=== PATIENT | female | born 1950 | race Caucasian/White ===

== ENCOUNTER → 2018-02-07 | Outpatient (CLI) | payer MEDICARE, OTHER | LOC: M.RAD 09:47 | DX: K50.90 Crohn's disease, unspecified, without complications (principal); K63.89 Other specified diseases of intestine ==

== ENCOUNTER → 2019-09-23 | Day surgery (SDC) | payer MEDICARE, OTHER ==
[~2019-09-23] MED LIST: ALIGN4 MG PO; ALLERGY RELIEF180 MG PO; BENICAR20 MG PO; CALCIUM WITH V1 EAC1 PO; CELEBREX 200 M200 M1 PO; COLESTID1 GM PO; GAVISCON TABLE1 EACH PO; KLOR-CON 1010 MEQ PO; LOPERAMIDE 2 MG2 M1 PO; MULTIVITAMIN W1 EAC2 PO; OMEPRAZOLE40 MG PO; PEPCID40 MG PO; PLAQUENIL200 MG PO; STELARA90 MG/1 ML SUBQ; VITAMIN B122500 MCG PO
--- NOTE | ~2019-09-23 | PROC ---
[address] [address] PROCEDURE REPORT Name: MIRIAM ACOSTA Room: [facility]#: [id number] Admission: 09/23/19 Attend Phys: Tr Weeks DO Discharge: Date of : 46 Report #: [id number] THIS REPORT FOR: //name// cc: SHRUTHI MONTES Physician not on staff ~ THIS REPORT FOR: //name// For GI report, please see the Provation report in Perceptive 7 content. By: 1038Medical Records Staff SIOBHAN /ABIDA
[2019-09-23 09:24] LABS: HEMATOCRIT 37.9 % (37.0-47.0); HEMOGLOBIN 12.9 gm/dL (12.0-15.0); MCH 30.3 pg (26.0-34.0); MCHC 33.9 g/dL (28.0-37.0); MCV 89.4 fL (80.0-100.0); RBC 4.24 mil/uL (4.20-5.00); WBC 7.6 thou/uL (4.0-11.0)
[2019-09-23 09:25] LABS: CALCIUM 9.4 mg/dL (8.5-10.1); POTASSIUM 3.5 mmol/L (3.5-5.1)
--- NOTE | 2019-09-23 09:43 | EKG ---
[place] [address] ELECTROCARDIOGRAM REPORT Name: MIRIAM ACOSTA Room: [facility]#: [id number] Admission: 09/23/19 Attend Phys: Tr Weeks, Discharge: Date of : 46 Date of Service: 09/23/1904 Report #: [id number] THIS REPORT FOR: //name// [facility] Test Date: 2019-09-23 Test Time: 09:04:09 Pat Name: MIRIAM ACOSTA Department: Room: Gender: Legal Technician: : 1950 Requested By: Tr Weeks Order Number: [id number] Harmony MD: Marshall Bell Measurements Intervals [place] Rate: 69 P: 32 CO: 139 QRS: -26 QRSD: 102 T: 44 QT: 413 QTc: 443 Interpretive Statements Sinus rhythm Incomplete RBBB and LAFB RSR' in V1 or V2, right VCD or RVH No previous ECG available for comparison Electronically Signed On 09-23-2019 9:41:47 CDT by Marshall Bell [email or web address] <ELECTRONICALLY SIGNED> By: Marshlal Bell MD, FACC 09/23/19 0941 0904 Marshall Bell MD, [facility] /EPI
--- NOTE | 2019-09-24 14:07 | PATH ---
[address] [address] PATHOLOGY RPT PROCEDURE Name: KRISTA ACOSTA Room: [facility]#: [id number] Admission: 09/23/19 Date of : 46 Discharge: Report #: [id number] Path Case #: [id number] [facility] Accession Number: [id number] . 01 Material submitted: . PART A: colon - BIOPSY OF ULCERATED TUMOR MID TRANSVERSE COLON. Modifiers: mid, transverse PART B: ileum - BIOPSY OF DISTAL ARLEN-TERMINAL ILEUM. Modifiers: distal . 01 Clinical history: . Crohn's and history of SBC . 02 Diagnosis: A. 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 (SEE COMMENT) . B. Biopsy distal arlen-terminal ileum: - Moderate active ileitis with suggestion of chronic inflammation and hyperplastic lymphoid follicles (Peyer's patches), negative for granulomas, viral inclusions and dysplasia. (SEE COMMENT) . (PALMER:mmemmie; 09/24/2019) QL 09/24/2019 1327 Local . 02 Comment: The distal arlen-terminal ileum biopsy (B) shows moderate active inflammation with easily identified neutrophils in the lamina propria, although with no crypt abscesses and, at most, minimal cryptitis and there is a suggestion of chronic inflammation where there is some crypt disarray and basal lymphoplasmacytosis, although it is difficult to ascertain in this fragment where there is also a hyperplastic lymphoid follicle. These findings could be seen in mildly active Crohn's disease. . Specimen A is reviewed with Dr. Tenzin Rodriguez who agrees with the diagnosis. . Discussed with Dr. Weeks at approximately 1310 on 09/24/2019. . (PALMER:mmemmie; 09/24/2019) . 02 Electronically signed: . Jamaal Bacon MD, Pathologist NPI- [id number] . 01 Gross description: . A. The specimen is received in formalin, labeled "Krista Acosta, [place] [address] PATHOLOGY RPT PROCEDURE Name: KRISTA ACOSTA Room: [facility]#: [id number] Admission: 09/23/19 Date of : 46 Discharge: Report #: [id number] Path Case #: [id number] ulcerated tumor mid transverse colon" and consists of multiple fragments of pink-fortune tissue measuring 1.0 x 0.6 x 0.3 cm in aggregate which are entirely submitted in A1. . B. The specimen is received in formalin, labeled "Krista Acosta, BX distal neoterminal ileum" and consists of multiple fragments of pink-fortune tissue measuring 0.9 x 0.8 x 0.2 cm in aggregate which are entirely submitted in B1. (SDY; 09/23/2019) SYU/SYU 09/23/2019 1628 Local . 02 Pathologist provided ICD-10: C18.4, K52.9 . 02 CPT . 586976, [id number] Specimen Comment: A courtesy copy of this report has been sent to [phone] Specimen Comment: [phone], Specimen Comment: Report sent to ,DR MONTES / DR MARTIN Performed at: [address], [place], [place] [id number] MD Martinez Weir MD Phone: [phone] Performed at: 02 [facility] [address], [place], [place] [id number] MD Jamaal Bacon MD Phone: [phone]
== END | disposition home or self-care (01) ==
LOC: M.SUR 06:35
PROVIDERS: Internal Medicine Gastroenterology
DX: R93.3 Abnormal findings on diagnostic imaging of other parts of digestive tract (principal); C18.4 Malignant neoplasm of transverse colon; K52.9 Noninfective gastroenteritis and colitis, unspecified; K63.89 Other specified diseases of intestine; Z87.19 Personal history of other diseases of the digestive system; Z98.0 Intestinal bypass and anastomosis status; Z85.038 Personal history of other malignant neoplasm of large intestine; I10 Essential (primary) hypertension; M19.90 Unspecified osteoarthritis, unspecified site; K21.9 Gastro-esophageal reflux disease without esophagitis; Z90.49 Acquired absence of other specified parts of digestive tract; Z87.891 Personal history of nicotine dependence; Z79.899 Other long term (current) drug therapy

== ENCOUNTER 2019-10-07 06:23 | Inpatient (IN) | payer MEDICARE, OTHER ==
[~2019-10-07] VITALS: Ht 152.4 cm; Wt 64.7 kg
--- NOTE | ~2019-10-07 | H ---
[address] [address] HISTORY AND PHYSICAL Name: MIRIAM ACOSTA Room: [address] IN M.R.#: [id number] Admission: 10/07/19 Attend Phys: Radha Hensley DO Discharge: 10/16/19 Date of : 46 Report #: [id number] THIS REPORT FOR: //name// cc: ACOSTA - Family physician unknown FAM - Family physician unknown ~ THIS REPORT FOR: //name// Please refer to the History and Physical performed in the physician's office. By: [id number] Records Staff [facility] /ABIDA
[2019-10-07 07:30] VITALS: BP 135/69
[2019-10-07 15:25] VITALS: BP 125/59
--- NOTE | 2019-10-07 16:28 | NUR ---
PT ARRIVED TO FLOOR FROM PACU ABOUT 1415. PT STABLE. ON 3LO2 WITH PULSE OX. IYER PATENT. LAP SITES ARE C/D/I. MINIMAL PAIN, DENIED PAIN MEDS. DENIED NAUSEA AT TIME. A&Ox4. VITALS STABLE. IV PATENT, INFUSING. BED ALARM ON. CLEAR LIQUID DIET. CALL LIGHT WITHIN REACH. WILL CONTINUE TO MONITOR.
[2019-10-07 17:21] VITALS: BP 128/64
[2019-10-07 20:00] VITALS: BP 115/55
[2019-10-08] VITALS: BP 113/49
[2019-10-08 04:00] VITALS: BP 101/50
[2019-10-08 05:41] LABS: HEMOGLOBIN 10.3 gm/dL (12.0-15.0); MCH 31.4 pg (26.0-34.0); MCHC 34.3 g/dL (28.0-37.0); MCV 91.5 fL (80.0-100.0); MPV 9.2 fl. (7.2-11.1); NUCLEATED RBCS 0 /100WBC; PLATELET COUNT* 167 thou/uL (150-400); RBC 3.28 mil/uL (4.20-5.00); RDW-CV 13.8 % (10.5-14.5); WBC 9.7 thou/uL (4.0-11.0)
[2019-10-08 05:54] LABS: CALCIUM 7.7 mg/dL (8.5-10.1); CREATININE 1.1 mg/dL (0.6-1.3)
[2019-10-08 06:36] LABS: ABSOLUTE LYMPHOCYTES 0.7 thou/uL (0.8-5.3); ABSOLUTE MONOCYTES 0.2 thou/uL (0.0-1.2); ABSOLUTE NEUTROPHILS 8.8 thou/uL (1.6-8.1); PLATELET ESTIMATE ADEQUATE
--- NOTE | 2019-10-08 07:15 | NUR ---
CHANGE OF SHIFT, BEDSIDE REPORT GIVEN PATIENT SEEN AT BEDSIDE, IN BED ASLEEP ASSUMED PATIENT CARE
--- NOTE | 2019-10-08 07:49 | NUR ---
ASSUMED CARE OF PT AFTER REPORT AT 1930. PT A&OX4. VSS. PHYSICAL ASSESSMENT COMPLETED AND CHARTED. PT ON O2 AT 2L NC. PT ON MEDSURG STATUS. PT UP WITH 1 ASSIST. PT COMPLAINED OF ABDOMINAL PAIN-MED GIVEN PER AUG. PT ABLE TO SLEEP WELL ON BED. CALL LIGHT WITHIN REACH.
[2019-10-08 08:00] VITALS: BP 146/79; BP 167/57
--- NOTE | 2019-10-08 12:05 | NUR ---
CM spoke with Pt's via phone. Pt resides at home with her in [place], Pt's Drs are in this area. Pt is independent and active. No hx of HH. Hx of being at a swing bed in [place] post surgery, Pt had cdiff at that time and needed IVABX. Pt sees Dr Muller at [facility] in [place], [place] [phone]. [place] [address] down and pick out hand Pt at [place]. Following.
[2019-10-08 16:00] VITALS: BP 115/60
[2019-10-08 20:00] VITALS: BP 102/44
[2019-10-09] VITALS: BP 119/49
--- NOTE | 2019-10-09 04:09 | NUR ---
ASSUMED CARE OF PT AFTER REPORT AT 1930. PT A&OX4. VSS. PHYSICAL ASSESSMENT COMPLETED AND CHARTED. PT ON O2 AT 1LNC. PT ON MEDSURG STATUS. PT UPSTANDBY TO RESTROOM. PT COMPLAINED OF ABDOMINAL PAIN-MED GIVEN PER AUG. PT ABLE TO SLEEP WELL ON BED. FALL PRECAUTIONS IN PLACE. CALL LIGHT WITHIN REACH.
[2019-10-09 04:21] LABS: HEMATOCRIT 28.2 % (37.0-47.0); HEMOGLOBIN 9.6 gm/dL (12.0-15.0); MCHC 34.1 g/dL (28.0-37.0); MCV 90.8 fL (80.0-100.0); RBC 3.11 mil/uL (4.20-5.00); RDW-CV 13.9 % (10.5-14.5); WBC 8.2 thou/uL (4.0-11.0)
[2019-10-09 05:14] LABS: CALCIUM 8.2 mg/dL (8.5-10.1); CREATININE 0.9 mg/dL (0.6-1.3); POTASSIUM 3.6 mmol/L (3.5-5.1)
--- NOTE | 2019-10-09 07:10 | NUR ---
CHANGE OF SHIFT, BEDSIDE REPORT GIVEN PATIENT SEEN AT BEDSIDE, IN BED RESTING ASSUMED PATIENT CARE
[2019-10-09 07:30] VITALS: BP 115/46
[2019-10-09 16:00] VITALS: BP 124/63
[2019-10-09 19:30] VITALS: BP 124/51; BP 140/62
[2019-10-10 00:05] VITALS: BP 129/60
--- NOTE | 2019-10-10 02:45 | NUR ---
ASSUMED CARE FROM DAY SHIFT , PT UP AMBULATING IN HALLWAY TOLERATING WELL , PT HAD LOOSE STOOL , ABD DISTENDED BOWEL SOUNDS NOTED. PAIN GIVEN ONE TIME THIS SHIFT , PT RESTING QUIETLY THROUGHOUT HOURLY ROUNDS, WILL REPORT CHANGES OR ABNORMAL FINDINGS.
[2019-10-10 04:41] LABS: HEMATOCRIT 31.9 % (37.0-47.0); HEMOGLOBIN 10.8 gm/dL (12.0-15.0); MCV 91.2 fL (80.0-100.0); MPV 9.1 fl. (7.2-11.1); RBC 3.49 mil/uL (4.20-5.00); RDW-CV 13.5 % (10.5-14.5); WBC 3.2 thou/uL (4.0-11.0)
[2019-10-10 04:59] LABS: CALCIUM 8.6 mg/dL (8.5-10.1); POTASSIUM 3.5 mmol/L (3.5-5.1)
--- NOTE | 2019-10-10 06:31 | NUR ---
PT VOMITED APPROX 700ML OF BROWN STOOL SMELLING EMESIS, PT STATES SHE FIRST VOMITED 0200 500ML THEN 200ML AT 0600 . CALLED PLACED TO DR Db CHAVEZ. RESDIDENT RETURNED CALL AND STATED HE WILL PT EARLY THIS AM.
[2019-10-10 07:45] VITALS: BP 134/72
[2019-10-10 11:54] VITALS: BP 136/63
--- NOTE | 2019-10-10 14:57 | OP ---
[address] [address] OPERATIVE REPORT Name: MIRIAM ACOSTA Evan Room: [address] IN .R.#: [id number] Admission: 10/07/19 Attend Phys: Radha Hensley DO Discharge: Date of : 46 Report #: [id number] THIS REPORT FOR: //name// cc: FAM - Family physician unknown FAM - Family physician unknown ~ THIS REPORT FOR: //name// CC: Radha MONTES FAM unknown Tr Weeks DO DICTATED BY: Robert Andrade DO DATE OF SERVICE: 10/07/2019 PREOPERATIVE DIAGNOSIS: Transverse colon mass. POSTOPERATIVE DIAGNOSES: Transverse colon mass. SURGEON: Radha Hensley DO RELATIONSHIP SPECIALIST: Robert Andrade, PGY4 and Anayeli Palmer, PGY-2. OPERATION PERFORMED: Laparoscopic extended right hemicolectomy and [id number] stapled ileocolonic anastomosis with lysis of adhesions greater than 2 hours. ANESTHESIA: General, local and transversus abdominis plane block. ESTIMATED BLOOD LOSS: 30 mL. SPECIMEN: Extended right hemicolectomy. COMPLICATIONS: None. INDICATIONS: The patient is a 69-year-old female well known to our service who had a history of ileocecectomy for Crohn's strictures with incidental finding of adenocarcinoma with Clostridium difficile in her postoperative. She also since has had acute cholecystitis, status post cholecystectomy and a pelvic abscess that was treated with IR drain. She also developed a ventral hernia, which was repaired with mesh. During her surveillance with Oncology, she underwent a PET scan that showed a possible abdominal lesion. She underwent colonoscopy, which showed a single transverse colon mass. There was an additional mass that was not visualized on the colonoscopy, but was present [place] [address] OPERATIVE REPORT Name: MIRIAM ACOSTA Room: [address]#: [id number] Admission: 10/07/19 Attend Phys: Radha Hensley DO Discharge: Date of : 46 Report #: [id number] suspicious for rosio metastasis. Due to the finding of a lesion within the transverse colon, she was informed of the risks and benefits of laparoscopic right hemicolectomy with high possibility for needing an open procedure. She understood the risks, she decided to proceed with surgery. DESCRIPTION OF PROCEDURE: After informed consent was obtained, the patient was brought to the operating room and placed in the supine position. SCDs were on and running. Preoperative antibiotics were delivered. General anesthesia was administered with an ET tube. White catheter was placed. The patient was prepped and draped in the usual sterile fashion. A surgical pause was held to confirm proper patient and procedure. The inferior aspect of her previous midline incision from her ileocecectomy, a 2 cm vertical incision was made. Dissection was carried through the subcutaneous tissue using cautery until the fascia was identified, which was elevated with 2 Kochers and incised using cautery. Peritoneum was bluntly entered using Chen, 0 Vicryl was placed on either side of the fascia. Rubén trocar was inserted. The abdomen was insufflated. Camera was introduced into the abdomen. There were some omental adhesions to her midline incision and from her hernia repair, which was intact. The transverse colon was visualized and the majority of the transverse colon was adherent to the abdominal wall, both tattoos were readily visualized. Two 5 mm ports on the left side, one in the left upper quadrant, one in the left lower quadrant were placed under direct visualization. Lysis of adhesions to the omental abdominal wall adhesions was undertaken. These were dense and quite extensive. Once these were taken down, there were some small bowel adhesions in the right upper quadrant, which were taken down using laparoscopic scissors. There were multiple adhesions over the dome of the liver. A few of the anterior adhesions that were tenting the liver were taken down. The previous anastomosis was adhesed to the abdominal wall on the right lower quadrant. These adhesions were taken down using scissors with care to maintain the integrity of the bowel. Once the lateral aspect of the anastomosis and the remaining right colon were taken down, the extent of resection was assessed. The distal margin was selected, which was at least 5 cm distal to her distal tattoo. A window was made through the mesentery. A 60 mm purple load Endo-MATEO by [employer] was fired across the transverse colon. The gastrocolic ligament was developed using a LigaSure and this was developed along the entire length of the transverse colon. Once this was completely free and only the mesentery was tethering the colon, the small bowel that was proximal to the previous anastomosis was selected. A loop of bowel that would easily reach the abdominal wall for the new anastomosis was selected and transected using a [employer] Endo-MATEO 45 mm stapler. The LigaSure was then used to take down the mesentery of the small bowel; the previous anastomosis in the right and transverse colon. Once the transverse right colon and transected small bowel mesenteries were completely taken down, the specimen was free. Laparoscopic Babcocks were then used to grasp the two ends for the anastomosis. A site was selected for specimen extraction and extracorporeal anastomosis in the epigastrium. An incision was made approximately 3 cm long. Dissection was carried through subcutaneous tissue [facility] [address] [place] [address] OPERATIVE REPORT Name: MIRIAM ACOSTA Room: [address] [place] M.R.#: [id number] Admission: 10/07/19 Attend Phys: Radha Hensley DO Discharge: Date of : 46 Report #: [id number] bluntly until the fascia was identified, which was again elevated with 2 Kochers and incised using cautery. Peritoneum was bluntly entered with a finger. Once the fascia was extended using cautery to the length of the incision, an Todd wound protector was inserted into the abdomen and secured into position. The specimen was grasped and removed, passed off to the back table. The 2 grasped ends of the colon and small bowel were then grasped with Babcocks and exteriorized. Two stay stitches using 2-0 silk were used to approximate the anastomosis. Care was taken to ensure that the bowel was not twisted and that it laid in an anatomical position. The two corners of the previous staple lines were elevated with an Allis. Curved Mayos were used to excise the corners to accommodate a 60 mm Endo-MATEO purple load stapler. This was used to create the common channel. After this was performed, the anterior aspect of the common channel was inspected. It was hemostatic and widely patent. The enterotomy was then closed by approximating the tissue using Allis clamps and firing a TA 60 across the common enterotomy. The anastomosis was widely patent. There was no visible bleeding and there was no twist or kink to the bowel. The anastomosis was returned into the abdomen. The cap was placed on the Todd wound protector. The abdomen was reinsufflated. The abdomen was thoroughly inspected and suctioned. There was no active bleeding. The small bowel and colon laid in a tension-free anastomosis. The trocars were then removed under direct visualization. A right lower quadrant 5 mm trocar had been introduced for assistance with retraction which was also removed under direct visualization and the left upper quadrant trocar had been upsized from a 5 mm to a 12 to accommodate the stapler. This was closed with a PMI using 0 Vicryl. The extraction site in the epigastrium was closed with two running 2-0 PDS. This wound was closed in a layered fashion using 3-0 Vicryl and 4-0 Monocryl. The infraumbilical Rubén was closed using a single [id number] of 2-0 PDS. This was also closed with 3-0 Vicryl and 4-0 Monocryl. The left upper quadrant, left lower quadrant and right lower quadrant skin incisions were closed using 4-0 Monocryl. Wounds were cleansed and dressed with Dermabond. The patient received a transversus abdominis plane block prior to emergence from anesthesia. The patient was extubated, emerged from anesthesia and transferred to the PACU in stable condition. White catheter will stay in place. She will be transferred to the floor for her postoperative care. There were no complications. All counts were correct. <ELECTRONICALLY SIGNED> By: Radha Hensley DO 10/10/19 1457 1248 [id number] Hensley DO /nt
[2019-10-10 16:28] VITALS: BP 130/71
--- NOTE | 2019-10-10 17:30 | NUR ---
PATIENT RESTING IN BED. PATIENT DENIES ANY PAIN AT THIS TIME. PATIENT HAD COMPLAINTS OF PAIN AND NAUSEA WITH VOMITING THIS AFTERNOON, TREATED ADEQUATELY WITH TORADOL AND ZOFRAN. PATIENT HAS POOR APPETITE WITH MINIMAL PO LIQUID INTAKE. IV FLUIDS ARE INFUSING ORDERED. PATIENT IS UP AD LALI TO BATHROOM. PATIENT DENIES ANY NEEDS AT THIS TIME. CALL LIGHT WITHIN REACH.
[2019-10-10 19:30] VITALS: BP 144/62
[2019-10-11] VITALS: BP 160/77
[2019-10-11 04:46] LABS: HEMATOCRIT 32.5 % (37.0-47.0); HEMOGLOBIN 10.9 gm/dL (12.0-15.0); MCH 30.9 pg (26.0-34.0); MCHC 33.6 g/dL (28.0-37.0); MPV 8.6 fl. (7.2-11.1); RBC 3.53 mil/uL (4.20-5.00); RDW-CV 13.6 % (10.5-14.5); WBC 4.3 thou/uL (4.0-11.0)
[2019-10-11 05:12] LABS: CALCIUM 8.6 mg/dL (8.5-10.1); MAGNESIUM 1.9 mg/dL (1.8-2.4); POTASSIUM 3.2 mmol/L (3.5-5.1)
--- NOTE | 2019-10-11 06:16 | NUR ---
PT ALERT AND ORIENTED. VSS ON RA. MEDS GIVEN PER EMAR. 5 LAP SITES TO ABD INTACT. TORADOL GIVEN FOR PAIN. ZOFRAN GIVEN FOR NAUSEA. NO VOMITTING NOTED THIS SHIFT. BM X2 THIS SHIFT PER PT. CALL LIGHT WITHIN REACH. HOURLY ROUNDINGS MADE. WILL CONTINUE TO MONITOR.
[2019-10-11 08:00] VITALS: BP 136/68
--- NOTE | 2019-10-11 10:18 | NUR ---
Spoke with Pt, plan continues to be for Pt [place] or [place] up. Following.
[2019-10-11 12:16] VITALS: BP 137/66
--- NOTE | 2019-10-11 16:31 | NUR ---
PATIENT RESTING IN BED. PATIENT HAS COMPLAINTS OF SOME ABDOMINAL PAIN TREATED ADEQUATELY WITH TORADOL. PATIENT IS TOLERATING SMALL AMOUNT OF CLEAR LIQUIDS. PATIENT HAS HAD NO VOMITING TODAY AND DENIES NEED FOR ZOFRAN. PATIENT HAS HAD BOWEL MOVEMENTS X 2. PATIENT IS UP AD LALI IN ROOM. PATIENT DENIES ANY NEEDS AT THIS TIME. CALL LIGHT WITHIN REACH.
[2019-10-11 19:20] VITALS: BP 141/69
[2019-10-11 23:45] VITALS: BP 148/71
[2019-10-12 05:01] LABS: HEMATOCRIT 35.3 % (37.0-47.0); HEMOGLOBIN 11.7 gm/dL (12.0-15.0); MCH 30.1 pg (26.0-34.0); MCHC 33.2 g/dL (28.0-37.0); MCV 90.6 fL (80.0-100.0); MPV 8.6 fl. (7.2-11.1); NUCLEATED RBCS 0 /100WBC; RDW-CV 13.5 % (10.5-14.5); WBC 6.5 thou/uL (4.0-11.0)
[2019-10-12 05:02] LABS: PLATELET COUNT* 346 thou/uL (150-400)
[2019-10-12 05:26] LABS: CREATININE 0.9 mg/dL (0.6-1.3); POTASSIUM 3.6 mmol/L (3.5-5.1)
--- NOTE | 2019-10-12 06:02 | NUR ---
PT SLEPT WELL THIS SHIFT. TORADOL GIVEN FOR PAIN X1 THIS SHIFT. BM REPORTED HAVING 2 BMs THIS SHIFT. AN EPISODE OF VOMITTING, REPORTED PER PT. NURSING DID NOT WITNESS. ZOFRAN GIVEN X1 THIS SHIFT. CALL LIGHT WITHIN REACH. WILL CONTINUE TO MONITOR.
[2019-10-12 06:30] LABS: ABSOLUTE LYMPHOCYTES 1.1 thou/uL (0.8-5.3); ABSOLUTE MONOCYTES 0.7 thou/uL (0.0-1.2); ABSOLUTE NEUTROPHILS 4.7 thou/uL (1.6-8.1); GIANT PLATELETS FEW; METAMYELOCYTES 1 %
[2019-10-12 06:31] LABS: OVALOCYTES Occasional; PLATELET ESTIMATE ADEQUATE
[2019-10-12 07:00] VITALS: BP 163/69
--- NOTE | 2019-10-12 09:04 | NUR ---
INITAL ASSESSMENT COMPLETED CHARTED. VSS. PT IS M/S STATUS. PT DOES REPORT 2/10 ABDOMINAL PAIN, PRN PAIN MEDS OFFERED, PT DECLINED AT THIS TIME. PT FOUZIA N/V. NO OTHER CONCERNS AT THIS TIME. REFER TO COMPUTER CHARTING FOR FURTHER DETAILS. HOURLY ROUNDING IN PLACE FOR PT SAFETY. CLWR.
[2019-10-12 16:00] VITALS: BP 151/69
--- NOTE | 2019-10-12 18:25 | NUR ---
PT PROGRESSING TOWARDS GOALS. PT HAS HAD 1 LOOSE BM WITH MODERATE AMOUNTS OF FLATULANCE THIS AFTERNOON, DECREASED PAIN REPORTED.
[2019-10-12 20:00] VITALS: BP 140/67
[2019-10-13 00:01] VITALS: BP 148/69
--- NOTE | 2019-10-13 03:17 | NUR ---
PT ALERT ORIENTED. UP AD LALI IN ROOM. ON RA. ABD LAP INCISIONS DRY WELL APPROXIMATED. TORDOL GIVEN HS FOR PAIN. PT REFUSED ACETAMINOPHINE BC SHE DID NOT WANT TO PUT ANYTHING ON HER STOMACH AT THAT TIME. MED/SURG STATUS. WCTM
[2019-10-13 06:09] LABS: HEMATOCRIT 33.8 % (37.0-47.0); HEMOGLOBIN 11.4 gm/dL (12.0-15.0); MCH 30.1 pg (26.0-34.0); MCHC 33.6 g/dL (28.0-37.0); MCV 89.7 fL (80.0-100.0); MPV 8.3 fl. (7.2-11.1); RBC 3.77 mil/uL (4.20-5.00); RDW-CV 13.6 % (10.5-14.5); WBC 7.4 thou/uL (4.0-11.0)
[2019-10-13 06:13] LABS: CALCIUM 8.9 mg/dL (8.5-10.1); POTASSIUM 3.2 mmol/L (3.5-5.1)
--- NOTE | 2019-10-13 07:04 | NUR ---
SURGERY NOTIFIED FOR AM K+ 3.2 AND POOR PO INTAKE. WILL LET RESIDENT ADDRESS WHEN ROUNDING.
[2019-10-13 08:00] VITALS: BP 136/67
[2019-10-13 16:00] VITALS: BP 121/56
--- NOTE | 2019-10-13 17:22 | NUR ---
RITCHIE RESTING IN BED. UP AD LALI IN ROOM. POD 6 COLON RESECTION. VSS. PATIENT IN NOAPPARENT DISTRESS A TTHIS TIME. HOURLYK ROUNDING COMPLETD FOR PATIENT SAFETY.
[2019-10-13 20:00] VITALS: BP 138/62
[2019-10-14] VITALS: BP 135/73
--- NOTE | 2019-10-14 04:47 | NUR ---
ASSUMED CARE OF PT AFTER REPORT AT 1930. PT A&OX4. VSS. PHYSICAL ASSESSMENT COMPLETED AND CHARTED. PT ON RA. PT ON MEDSURG STATUS. PT UPADLIB TO RESTROOM. PT DENIES ANY PAIN. NO EPISODE OF N/V AT THIS TIME. PT ABLE TO SLEEP WELL ON BED. CALL LIGHT WITHIN REACH.
--- NOTE | 2019-10-14 07:05 | NUR ---
CHANGE OF SHIFT REPORT GIVEN PATIENT SEEN AT BEDSIDE, IN BED ASLEEP ASSUMED PATIENT CARE
[2019-10-14 08:00] VITALS: BP 143/71
[2019-10-14 12:10] VITALS: BP 131/64
--- NOTE | 2019-10-14 14:09 | PATH ---
[address] [address] PATHOLOGY RPT PROCEDURE Name: MIRIAM ACOSTA Room: [address] IN ..#: [id number] Admission: 10/07/19 Date of : 46 Discharge: Report #: [id number] Path Case #: [id number] [facility] Accession Number: [id number] . 01 Material submitted: . colon - RIGHT COLECTOMY. Modifiers: right . 01 Clinical history: . Cancer transverse colon . 02 Diagnosis: RIGHT EXTENDED HEMICOLECTOMY: - ULCERATED COLONIC ADENOCARCINOMA, MODERATELY DIFFERENTIATED, MUCINOUS TYPE, FORMING A MASS MEASURING 1.9 X 1.3 CM, WITH TRANSMURAL INVASION TO INVOLVE BLUE INKED FREE SEROSAL SURFACE. - PROXIMAL, DISTAL AND MESENTERIC RESECTION MARGINS FREE OF MALIGNANCY. - Twenty-three benign pericolic lymph nodes, many with black pigment tattooing (0/23). - See comment. LBQ 10/10/2019 1228 Local . 02 Comment: SURGICAL PATHOLOGY CANCER CASE SUMMARY Protocol posting date: July 2019 . COLON AND RECTUM: Resection, Including Transanal Disk Excision of Rectal Neoplasms Procedure ___ Other: Extended right hemicolectomy Tumor Site ___ Transverse colon Tumor Size Greatest dimension: 1.9 cm x 1.3 cm Macroscopic Tumor Perforation ___ Not identified Histologic Type ___ Mucinous adenocarcinoma Histologic Grade ___ G2: Moderately differentiated Tumor Extension ___ Tumor invades the visceral peritoneum (including tumor continuous with serosal surface through area of inflammation) Margins ___ All margins are uninvolved by invasive carcinoma, high grade dysplasia / intramucosal carcinoma, and low grade dysplasia Margins examined: Proximal, distal and mesenteric + Distance of invasive carcinoma from closest margin: 2.5 cm + Closest margin: [place] [address] PATHOLOGY RPT PROCEDURE Name: MIRIAM ACOSTA Room: [address]#: [id number] Admission: 10/07/19 Date of : 46 Discharge: Report #: [id number] Path Case #: [id number] Proximal Margin ___ Uninvolved by invasive carcinoma, high grade dysplasia / intramucosal carcinoma, and low grade dysplasia + Distance of tumor from margin: 21 cm Distal Margin ___ Uninvolved by invasive carcinoma, high grade dysplasia / intramucosal carcinoma, and low grade dysplasia + Distance of tumor from margin: 6.8 cm Mesenteric Margin ___ Uninvolved by invasive carcinoma + Distance of tumor from margin: 2.5 cm Treatment Effect ___ No known presurgical therapy Lymphovascular Invasion ___ Not identified Perineural Invasion ___ Not identified + Tumor Budding + ___ Number of tumor buds in 1 "hotspot" field: 2 + ___ Low score (0-4) + Type of Polyp in Which Invasive Carcinoma Arose + ___ None identified Tumor Deposits ___ Not identified Regional Lymph Nodes Number of Lymph Nodes Involved: 0 Number of Lymph Nodes Examined: 23 . PATHOLOGIC STAGE CLASSIFICATION (pTNM, AJCC 8TH EDITION) Primary Tumor (pT) ___ pT4a: Tumor invades through the visceral peritoneum (including gross perforation of the bowel through tumor and continuous invasion of tumor through areas of inflammation to the surface of the visceral peritoneum) Regional Lymph Nodes (pN) ___ pN0: No regional lymph node metastasis + Additional Pathologic Findings + ___ Other: Intact ileocolic anastomosis line, absent appendix, suture granuloma in mesentery and chronic inflammation of bowel near anastomosis line compatible with Crohn's disease. + Ancillary Studies ___ Pending . The tumor is seen to frankly involve the blue inked free serosal surface in A8. The patient has a history of Crohn's disease (Dr. Hensley operative report dated 10/07/2019) and prominent crypt distortion of mucosa, likely small intestinal, is seen in A2 taken from the anastomosis line typical of Crohn's disease. . MMR/MSI immunohistochemical studies are pending on A5 [place] [address] PATHOLOGY RPT PROCEDURE Name: MIRIAM ACOSTA Room: [address] IN [facility]#: [id number] Admission: 10/07/19 Date of : 46 Discharge: Report #: [id number] Path Case #: [id number] subject of an addendum report. . A8 reviewed with Dr. Génesis De Leon who agrees with the diagnosis. (PLAMER/iftikhar; 10/10/2019) . 02 Addendum: . MICROSATELLITE INSTABILITY REPORT (MSI): . Mismatch repair (MMR) protein immunohistochemical staining was performed. . Specimen:Formalin fixed paraffin embedded tissue Specimen ID:[id number], A5 Reason for testing:To evaluate for evidence of defective mismatch repair proteins. Method:Immunohistochemical staining for the presence or absence of protein expression of one or more of the following MMR protein markers: MLH1, MSH2, MSH6 and PMS2. . Results: MLH1 -Preserved MSH2 -Preserved MSH6 -Preserved PMS2 -Preserved . Mismatch Repair Status:MMR Proficient (MMR-P) . Interpretation: . (MMR-P) All four MMR proteins are preserved within tumor cells. This suggests the presence of normal DNA mismatch repair function within the tumor and an observable defect in mismatch repair is not identified. The likelihood that this patient has an inherited germline mutation syndrome due to defective mismatch repair is reduced but not totally eliminated. If the patient has a strong personal or family history of HPNCC/Meléndez syndrome related cancers (colorectal, endometrial, gastric, ovarian, pancreatic, ureter/renal pelvis, biliary tract, brain, small bowel and [place] syndrome), consider MSI testing by PCR methodology. Suggest clinical correlation and follow up. . These test results are designed for screening purposes only and are useful tools in identifying cancer patients that are more likely to have Meléndez Syndrome related diagnoses. Tests should be interpreted in the context of clinical findings, family history and laboratory data. Abnormal IHC results for MMR protein expression are not considered diagnostic for Meléndez Syndrome. . (PALMER:tylor; 10/14/2019) . [place] [address] PATHOLOGY RPT PROCEDURE Name: MIRIAM ACOSTA Room: [address] IN [facility].#: [id number] Admission: 10/07/19 Date of : 46 Discharge: Report #: [id number] Path Case #: [id number] Professional services performed by [email or web address] at [facility], [address] [place] [address]. Technical services performed at [address] [place] [address]. [facility]/10/14/2019 Addendum Electronically Signed by Jamaal Bacon MD, Pathologist . 02 Electronically signed: . Jamaal Bacon MD, Pathologist NPI- [id number] . 01 Gross description: . The specimen is received in formalin, labeled "Miriam Acosta, right extended hemicolectomy" and consists of an extended right colectomy specimen with ileum (6.4 cm in length and up to 2.8 cm in diameter), ascending/transverse colon (24.0 cm in length and up to 3.0 cm in diameter), and pericolic fat (up to 8.0 cm). The appendix is absent and omentum is present measuring 10.0 x 6.0 cm. There are extensive adhesions at the proximal aspect with a probable intact anastomosis line which, after opening, measures 6.0 cm in circumferential length. The line is 5.0 cm from the proximal margin. Both margins have a staple line. There is extensive serosal black tattoo ink, 4.0 cm from the distal margin. Further opening reveals a 1.9 x 1.3 cm ulcerated pink-fortune mass that is 6.8 cm from the distal margin, 21.0 cm from the proximal margin, and 2.5 cm from the nearest mesenteric margin. The serosa/pericolic tissue in this region is inked blue. Sectioning through the mass reveals obliteration of the muscular wall and extension abutting the blue inked serosa. The mass shows white fortune cystic cut surfaces. The uninvolved mucosa is pink-fortune with no additional mass lesions. The omentum reveals no masses or lesions. The pericolic fat is placed in a clearing solution to reveal multiple lymph node candidates measuring between 0.1 cm and 0.8 cm. Mattress Maker sections are submitted as follows: . A1: Proximal margin A2: Anastomosis line A3: Distal margin A4-A9: Entire mass A10: Uninvolved mucosa A11: Omentum A12: 5 intact lymph node candidates A13: 2 bisected lymph nodes, one inked black A14: 5 intact lymph node candidates A15: 5 intact lymph node candidates A16: 2 bisected lymph nodes, one inked black A17: 4 intact lymph node candidates (SD; 10/08/2019) SYU/SYU 10/10/2019 1505 Local . 02 Pathologist provided ICD-10: C18.4 [place] [address] PATHOLOGY RPT PROCEDURE Name: MIRIAM ACOSTA Room: [address] [facility] IN M.R.#: [id number] Admission: 10/07/19 Date of : 46 Discharge: Report #: [id number] Path Case #: [id number] . 02 CPT . [id number], [id number], [id number] Specimen Comment: A courtesy copy of this report has been sent to [phone], [phone] Specimen Comment: [id number] Specimen Comment: Report sent to / DR MONTES Performed at: [address], [place], [place] [id number] MD Martinez Weir MD Phone: [phone] Performed at: 02 [facility] [address], [place], [place] [id number] MD Jamaal Bacon MD Phone: [phone]
--- NOTE | 2019-10-14 15:08 | NUR ---
Anticipate dc to home tomorrow, or son to provide dc transportation.
[2019-10-14 16:51] VITALS: BP 117/61
[2019-10-14 21:15] VITALS: BP 129/66
[2019-10-15] VITALS: BP 123/61
[2019-10-15 04:00] VITALS: BP 136/69
--- NOTE | 2019-10-15 04:16 | NUR ---
ASSUMED CARE OF PT 10/14/19 AT APPROX 1930. PT A&OX4, ON ROOM AIR, VSS. NOT C/O PAIN THIS SHIFT. ASSESSMENTS AND HOURLY ROUNDINGS COMPLETE. WILL CONTINUE TO MONITOR.
[2019-10-15 08:00] VITALS: BP 140/71
--- NOTE | 2019-10-15 14:44 | NUR ---
Nutrition: Pt assessed for LOS. Likely discharging soon. Hx, labs, meds noted. Pt going back home to [place]. Wt: 147#. H/o crohns and colon cancer. She is on Soft/fiber restricted diet. No albumin recorded. No nutrition interventions at this time. Consider mild risk. RD available if desired.
[2019-10-15 16:51] VITALS: BP 120/63
--- NOTE | 2019-10-15 17:36 | NUR ---
assumed pt care report received from nurse pt is aox4. on ra. no complaint. has diarrhea but says it is normal for her and refused immodium. up ad demetrio. call light within reach
--- NOTE | 2019-10-15 17:37 | NUR ---
pt tolorated diet well. no n/v. ambulated alone in hallway. pt had 4 bowel movements during the day.
[2019-10-15 22:00] VITALS: BP 132/66
[2019-10-16] VITALS: BP 118/63; BP 127/65
--- NOTE | 2019-10-16 04:31 | NUR ---
PATIENT HAS SLEPT WELL THROUGHOUT THE NIGHT. VSS ON RA. NO C/O PAIN. MEDICATIONS GIVEN ORDERED AND CHARTED. ASSESSMENT CHARTED. PATIENT UP AD-LALI. IV IN RIGHT FOREARM-SL. PATIENT INSTRUCTED TO USE CALL LIGHT WHEN NEEDING ASSISTANCE. HOURLY ROUNDS MADE. WILL CONTINUE WITH PLAN OF CARE AND NURSING TO MONITOR.
[2019-10-16 08:00] VITALS: BP 139/76
[2019-10-16 11:31] VITALS: BP 139/76
[2019-10-16 11:36] VITALS: BP 139/76
[2019-10-16 11:40] VITALS: BP 139/76
--- NOTE | 2019-10-16 11:50 | NUR ---
ASSUMED PT CARE REPORT RECEIVED FROM NURSE PT IS AOX4. ON RA. MEDSURG STATUS. NO COMPLAINT. AWAITING FOR DISCHARGE. DISCHARGE INSTRUCTION GIVEN. IV LINE RETRIEVED.
--- NOTE | 2019-10-16 13:40 | NUR ---
PT LEFT UNIT AT 1335 ACCOMPANIED BY NURSE TECH ON WHEELCHAIR. BELONGINGS BROUGHT ALONG
== END 2019-10-16 13:39 | disposition home or self-care (01) | DRG 330 ==
LOC: M.2W 06:23 → M.TBA 06:23 → M.PRE 07:42 → M.2W 14:31 → M.PRE 14:56 → M.2W 10-16 13:39
PROVIDERS: ADMIT Surgery
PROC: 0DTF4ZZ Resection of Right Large Intestine, Percutaneous Endoscopic Approach (ICD-10-PCS; principal; 2019-10-07)
PROC: 3E0T3BZ Introduction of Anesthetic Agent into Peripheral Nerves and Plexi, Percutaneous Approach (ICD-10-PCS; principal; 2019-10-07)
PROC: 0DNF4ZZ Release Right Large Intestine, Percutaneous Endoscopic Approach (ICD-10-PCS; principal; 2019-10-07)
DX: C18.4 Malignant neoplasm of transverse colon (principal); D62 Acute posthemorrhagic anemia; K56.7 Ileus, unspecified; K50.90 Crohn's disease, unspecified, without complications; E87.6 Hypokalemia; I10 Essential (primary) hypertension; K21.9 Gastro-esophageal reflux disease without esophagitis; M06.9 Rheumatoid arthritis, unspecified; E03.9 Hypothyroidism, unspecified; Z87.891 Personal history of nicotine dependence; Z90.49 Acquired absence of other specified parts of digestive tract; Z85.09 Personal history of malignant neoplasm of other digestive organs; Z79.899 Other long term (current) drug therapy; Z88.8 Allergy status to other drugs, medicaments and biological substances; Z72.89 Other problems related to lifestyle

== ENCOUNTER 2020-01-18 18:25 | Inpatient (IN) | payer MEDICARE, OTHER ==
[~2020-01-18] VITALS: Ht 152.4 cm; Wt 76.1 kg
--- NOTE | ~2020-01-18 | CON ---
[address] [address] CONSULTATION Name: MIRIAM ACOSTA Evan Room: [address] IN M.R.#: [id number] Admission: 01/18/20 Attend Phys: Evelina Vargas MD Discharge: Date of : 46 Report #: [id number] THIS REPORT FOR: //name// cc: FAM - Family physician unknown FAM - Family physician unknown ~ THIS REPORT FOR: //name// CC: ACOSTA unknown Evelina Vargas DICTATED BY: Brenda EARLY DATE OF SERVICE: 01/20/2020 Unknown who her PCP is. Please note, at the time of this dictation, the patient was seen and physically examined by myself. REASON FOR CONSULTATION: Gastrointestinal bleed, lower. HISTORY OF PRESENT ILLNESS: This is a 69-year-old female, who has a history of mucinous adenocarcinoma of the transverse colon that was noted back in September with her colonoscopy, which she then went and had a post right hemicolectomy that was done in October following this diagnosis after an ____ for Crohn's disease. She has finished her second round of chemo, which completed on . During her first round, she had some mild nausea for about a day and a half and tolerated the full course, took a week off, then initiated the 2nd around for about 2 weeks, complicated with significant nausea and vomiting as well as some epigastric pain and some chronic diarrhea and unable to tolerate the last day and a half of dosing that was completed Monday morning. She has had severe abdominal pain, nausea, vomiting, epigastric pain. She has been vomiting prior to admission for the 48 hours. She was also complaining of difficulty moving both of her legs. Please note that the patient had elevated INR when she came in at 18. She was in a very hypercoagulability state. Last evening, her pressures diminished as well as her heart rate, she became very bradycardic and was pulseless. Code Blue was initiated in which she was resuscitated for about 20-30 minutes last evening; and she is on numerous pressors at this time and ventilated at this time. She continues to ooze from the rectum, maroon color stool. She also at the time of admission underwent a fasciotomy and an arterial thrombectomy x 2 was also performed. She has also been on heparin. ALLERGIES: [place] [address] CONSULTATION Name: ACOSTAMIRIAM Room: [address] IN [facility]#: [id number] Admission: 01/18/20 Attend Phys: Evelina Vargas MD Discharge: Date of : 46 Report #: [id number] MEDICATIONS FROM HOME: See AUG. PAST MEDICAL HISTORY: Colon cancer, Crohn's, arthritis, history of C. diff. PAST SURGICAL HISTORY: Cholecystectomy, incisional hernia with mesh, mucinous adenocarcinoma of the transverse colon, right hemicolectomy, she has had 3 C-sections, D and C, cataract surgery, she has had ileocolectomy, thyroid mass. FAMILY HISTORY: Noncontributory. SOCIAL HISTORY: Former smoker. Alcohol on special occasions. Otherwise, illegal drug use is negative. REVIEW OF SYSTEMS: Twelve-point review of systems is obtained from the chart since the patient is intubated and unable to answer the questions. PHYSICAL EXAMINATION: VITAL SIGNS: Temperature 36, pulse 130, respirations 27, blood pressure 99/34. HEART: The patient is tachycardic. LUNGS: Diminished. ABDOMEN: Soft, positive bowel sounds in all 4 quadrants, with some epigastric tenderness noted to palpation, slight grimacing noted. LABORATORY DATA: Hemoglobin is up to 11.9 after 4 units of blood, dropping down to 5.5; she got a unit of platelets and a unit of cryo; white count is 6.6; platelets now is 186 from 40. BUN is 30, creatinine is 2.5. PT 6.4, INR is 6.5. ALT is 2968 and AST is 5098. IMAGING STUDIES: CT of the abdomen and pelvis on admission showed circumferential wall thickening of the 2nd and 3rd portion of the duodenum, small focal area of fat necrosis associated with the right mid abdominal omentum, also interval splenic near complete infarction does not appear to be acute and loss of ____ markings of the colon. IMPRESSION: 1. Gastrointestinal bleed, lower, maroon. 2. Abnormal CT circumferential wall thickening of the 2nd and 3rd portion of the duodenum. 3. Epigastric pain. 4. Hypercoagulability state. 5. Acute anemia. 6. Thrombocytopenia. 7. Elevated ALT and AST, shock liver, post code. 8. Adenocarcinoma of the colon. 9. Crohn's. [address] [address] CONSULTATION Name: MIRIAM ACOSTA Room: [address] IN M.R.#: [id number] Admission: 01/18/20 Attend Phys: Evelina Vargas MD Discharge: Date of : 46 Report #: [id number] PLAN: 1. Transfuse to keep hemoglobin greater than 7. 2. We will await performing any endoscopic evaluation until her overall anticoagulability state improves. 3. We will continue to follow. Thank you for allowing us to participate in this patient's care. Please do not hesitate to call with any questions in regard to this consult. By: 1025 [id number] Castaneda MD /nt
[2020-01-18 18:26] VITALS: BP 155/88
[2020-01-18] MEDS ORDERED: COMPAZINE10 MG PO (18:38)
[2020-01-18] MEDS ORDERED: ZOFRAN ODT4 MG PO (18:38)
[2020-01-18] MEDS ORDERED: SPIRONOLACTONE25 M1 PO (18:39)
[2020-01-18] MEDS ORDERED: NUFOLA CAPSULE1 EAC1 PO (18:39)
[2020-01-18 18:59] LABS: HEMATOCRIT 40.4 % (37.0-47.0); HEMOGLOBIN 13.7 gm/dL (12.0-15.0); MCH 30.3 pg (26.0-34.0); MCV 89.3 fL (80.0-100.0); MPV 8.5 fl. (7.2-11.1); NUCLEATED RBCS 0 /100WBC; PLATELET COUNT* 290 thou/uL (150-400); RBC 4.53 mil/uL (4.20-5.00); RDW-CV 15.9 % (10.5-14.5); WBC 18.6 thou/uL (4.0-11.0)
[2020-01-18 19:11] LABS: APTT 22.9 Seconds (25.0-31.3); CALCIUM 7.4 mg/dL (8.5-10.1); CREATININE 1.6 mg/dL (0.6-1.3); INR 1.2; PROTIME 12.3 Seconds (9.20-11.50)
[2020-01-18] MEDS ORDERED: BENICAR20 MG PO (19:16)
[2020-01-18 19:17] LABS: ALBUMIN 2.9 g/dL (3.4-5.0); TOTAL BILIRUBIN 0.3 mg/dL (<0.1-1.0); TOTAL PROTEIN 5.7 g/dL (6.4-8.2)
[2020-01-18 19:20] LABS: ABSOLUTE LYMPHOCYTES 1.3 thou/uL (0.8-5.3); ABSOLUTE MONOCYTES 0.6 thou/uL (0.0-1.2); ABSOLUTE NEUTROPHILS 16.7 thou/uL (1.6-8.1); ATYPICAL LYMPHS 1 %; PLATELET ESTIMATE ADEQUATE
[2020-01-18 21:31] VITALS: BP 158/77
[2020-01-18 21:40] VITALS: BP 161/67
[2020-01-18] MEDS ORDERED: VOLTAREN GEL 1100 G1 TOP (23:24)
[2020-01-18] MEDS ORDERED: CAPECITABINE500 MG PO (23:26)
[2020-01-19] VITALS (26 sets, daily range): BP systolic 58–216; BP diastolic 29–102
[2020-01-19 02:13] LABS: URINE BILIRUBIN NEGATIVE (Negative); URINE BLOOD 3+ (Negative); URINE CLARITY CLEAR; URINE COLOR YELLOW; URINE GLUCOSE-RANDOM NEGATIVE (Negative); URINE KETONES TRACE (Negative); URINE LEUKOCYTES-REFLEX NEGATIVE (Negative); URINE NITRITE-REFLEX NEGATIVE (Negative); URINE PROTEIN 2+ (Negative); URINE SPECIFIC GRAVITY 1.015 (1.005-1.030); URINE UROBILINOGEN 0.2 E.U./dl (0.2-1.0)
[2020-01-19 03:26] LABS: COARSE GRANULAR CASTS >10 Many /LPF (None Seen)
[2020-01-19 03:27] LABS: SQUAMOUS 0-3 Few /LPF (0-3); URINE WBC-REFLEX 6-15 Few /HPF (0-5)
[2020-01-19 03:28] LABS: BACTERIA-REFLEX 1-9 Few /HPF (None Seen); URINE RBC 3-10 Few /HPF (0-2); WBC CASTS 0-3 /LPF
[2020-01-19 03:29] LABS: CRYSTALS None Seen /LPF (None Seen)
[2020-01-19 10:54] LABS: HEMATOCRIT 31.1 % (37.0-47.0)
[2020-01-19 10:56] LABS: HEMOGLOBIN 10.7 gm/dL (12.0-15.0)
[2020-01-19 11:03] LABS: CALCIUM 7.2 mg/dL (8.5-10.1); CREATININE 1.1 mg/dL (0.6-1.3); POTASSIUM 3.1 mmol/L (3.5-5.1)
--- NOTE | 2020-01-19 11:42 | EKG ---
[place] [address] ELECTROCARDIOGRAM REPORT Name: ACOSTAMIRIAM Evan Room: [address] ADM IN .R.#: [id number] Admission: 01/18/20 Attend Phys: Evelina Vargas, Discharge: Date of : 46 Date of Service: 01/18/20 1840 Report #: [id number] THIS REPORT FOR: //name// [facility] ED Test Date: 2020-01-18 Test Time: 18:40:24 Pat Name: MIRIAM ACOSTA Department: Room: [facility] Gender: F Rescue Instructor: ALISON : 1950 Requested By: Rhoda Oh Order Number: [id number] MD: Gurpreet Redmond Measurements Intervals [place] Rate: 97 P: 53 IA: 96 QRS: -62 QRSD: 93 T: 94 QT: 350 QTc: 445 Interpretive Statements Sinus rhythm Short IA interval Left anterior fascicular block Borderline repolarization abnormality Compared to ECG 09/23/2019 09:04:09 Short IA interval now present Incomplete right bundle-branch block no longer present Right bundle-branch block no longer present Right ventricular hypertrophy no longer present Electronically Signed On 01-19-2020 11:42:26 CDT by Gurpreet Redmond [email or web address] <ELECTRONICALLY SIGNED> By: Jessica Redmond MD, [facility] 01/19/20 1142 39 39 Jessica Redmond MD, [facility] /EPI
[2020-01-19 15:56] LABS: HEMATOCRIT 31.5 % (37.0-47.0); HEMOGLOBIN 10.8 gm/dL (12.0-15.0); MCHC 34.1 g/dL (28.0-37.0); MCV 90.8 fL (80.0-100.0); MPV 8.6 fl. (7.2-11.1); RBC 3.47 mil/uL (4.20-5.00); RDW-CV 16.1 % (10.5-14.5); WBC 15.2 thou/uL (4.0-11.0)
[2020-01-19 16:01] LABS: CALCIUM 6.9 mg/dL (8.5-10.1); CREATININE 1.3 mg/dL (0.6-1.3)
[2020-01-19 16:05] LABS: ALBUMIN 2.2 g/dL (3.4-5.0); POTASSIUM 3.8 mmol/L (3.5-5.1); TOTAL BILIRUBIN 0.7 mg/dL (<0.1-1.0); TOTAL PROTEIN 4.5 g/dL (6.4-8.2)
[2020-01-19 18:11] LABS: HEMATOCRIT 25.1 % (37.0-47.0); HEMOGLOBIN 8.4 gm/dL (12.0-15.0); MCH 30.8 pg (26.0-34.0); MCHC 33.6 g/dL (28.0-37.0); MCV 91.8 fL (80.0-100.0); MPV 9.1 fl. (7.2-11.1); RBC 2.74 mil/uL (4.20-5.00); RDW-CV 16.3 % (10.5-14.5); WBC 14.4 thou/uL (4.0-11.0)
[2020-01-19 18:19] LABS: CALCIUM 6.2 mg/dL (8.5-10.1); CREATININE 1.5 mg/dL (0.6-1.3)
[2020-01-19 18:20] LABS: POTASSIUM 4.9 mmol/L (3.5-5.1)
[2020-01-19 20:22] LABS: INR 1.7; PROTIME 16.8 Seconds (9.20-11.50)
[2020-01-19 21:51] LABS: MCH 30.7 pg (26.0-34.0); MCHC 30.3 g/dL (28.0-37.0); MPV 9.2 fl. (7.2-11.1); RBC 1.8 mil/uL (4.20-5.00); RDW-CV 17.9 % (10.5-14.5); WBC 17.7 thou/uL (4.0-11.0)
[2020-01-19 21:52] LABS: HEMATOCRIT 18.2 % (37.0-47.0); HEMOGLOBIN 5.5 gm/dL (12.0-15.0); MCV 101.5 fL (80.0-100.0)
[2020-01-19 22:06] LABS: INR 2.5; PROTIME 24.4 Seconds (9.20-11.50)
[2020-01-19 22:12] LABS: ALBUMIN 1.1 g/dL (3.4-5.0); CREATININE 1.8 mg/dL (0.6-1.3); TOTAL BILIRUBIN 0.4 mg/dL (<0.1-1.0); TOTAL PROTEIN 2.5 g/dL (6.4-8.2)
[2020-01-19 22:17] LABS: CALCIUM 5.7 mg/dL (8.5-10.1); POTASSIUM 6.6 mmol/L (3.5-5.1)
[2020-01-19 22:58] LABS: BE -25.6 mmol/L (-2 to +3)
[2020-01-19 23:01] LABS: pH 6.965 (7.340-7.450)
[2020-01-19 23:02] LABS: PCO2 < 17.0 mmHg (35.0-45.0); PO2 > 488.8 mmHg (75.0-100.0)
[2020-01-20] VITALS (107 sets, daily range): BP systolic 59–175; BP diastolic 43–116
[2020-01-20 01:20] LABS: BE -17.7 mmol/L (-2 to +3)
[2020-01-20 01:23] LABS: PCO2 19.5 mmHg (35.0-45.0); PO2 194.9 mmHg (75.0-100.0); pH 7.227 (7.340-7.450)
[2020-01-20 01:37] LABS: ABSOLUTE LYMPHOCYTES 1.5 thou/uL (0.8-5.3); ABSOLUTE NEUTROPHILS 10.1 thou/uL (1.6-8.1); BASOPHILS 0.2 %; RBC 3.44 mil/uL (4.20-5.00); WBC 12.1 thou/uL (4.0-11.0)
[2020-01-20 01:41] LABS: CREATININE 2.1 mg/dL (0.6-1.3)
[2020-01-20 01:50] LABS: ALBUMIN 0.8 g/dL (3.4-5.0); PHOSPHORUS* 7.9 mg/dL (2.5-4.9); TOTAL BILIRUBIN 0.4 mg/dL (<0.1-1.0); TOTAL PROTEIN 1.9 g/dL (6.4-8.2)
[2020-01-20 01:55] LABS: POTASSIUM 4.3 mmol/L (3.5-5.1)
[2020-01-20 02:10] LABS: ABSOLUTE EOSINOPHILS 0.1 thou/uL (0.0-0.7); ABSOLUTE MONOCYTES 0.5 thou/uL (0.0-1.2); EOSINOPHILS 0.5 %; HEMATOCRIT 31.5 % (37.0-47.0); LYMPHOCYTES 12.1 %; MCH 30.6 pg (26.0-34.0); MCHC 33.4 g/dL (28.0-37.0); MONOCYTES 3.9 %; MPV 8.4 fl. (7.2-11.1); NUCLEATED RBCS 2 /100WBC; POLYS 83.3 %; RDW-CV 14.5 % (10.5-14.5)
[2020-01-20 02:14] LABS: INR > 18.0; PROTIME > 210.1 Seconds (9.20-11.50)
[2020-01-20 02:15] LABS: APTT 198.4 Seconds (25.0-31.3)
[2020-01-20 02:21] LABS: HEMOGLOBIN 10.5 gm/dL (12.0-15.0); MCV 91.7 fL (80.0-100.0)
[2020-01-20 02:22] LABS: PLATELET COUNT* 44 thou/uL (150-400)
[2020-01-20 05:20] LABS: BE -7.9 mmol/L (-2 to +3); PCO2 21.6 mmHg (35.0-45.0); pH 7.437 (7.340-7.450)
[2020-01-20 05:23] LABS: PO2 195.7 mmHg (75.0-100.0)
[2020-01-20 05:39] LABS: PROTIME 61.4 Seconds (9.20-11.50)
[2020-01-20 05:41] LABS: APTT 59.2 Seconds (25.0-31.3)
[2020-01-20 05:42] LABS: INR 6.5
[2020-01-20 05:46] LABS: HEMATOCRIT 36.1 % (37.0-47.0); HEMOGLOBIN 12.3 gm/dL (12.0-15.0); MCH 30.2 pg (26.0-34.0); MCHC 34.1 g/dL (28.0-37.0); MCV 88.7 fL (80.0-100.0); MPV 8.5 fl. (7.2-11.1); NUCLEATED RBCS 7 /100WBC; RBC 4.07 mil/uL (4.20-5.00); RDW-CV 14.5 % (10.5-14.5); WBC 5.5 thou/uL (4.0-11.0)
[2020-01-20 05:48] LABS: PLATELET COUNT* 216 thou/uL (150-400)
[2020-01-20 05:53] LABS: ALBUMIN 1.5 g/dL (3.4-5.0); CREATININE 2.3 mg/dL (0.6-1.3); POTASSIUM 3.7 mmol/L (3.5-5.1); TOTAL BILIRUBIN 0.7 mg/dL (<0.1-1.0); TOTAL PROTEIN 3.3 g/dL (6.4-8.2)
[2020-01-20 05:56] LABS: CALCIUM 5.9 mg/dL (8.5-10.1)
[2020-01-20 06:32] LABS: ABSOLUTE LYMPHOCYTES 0.4 thou/uL (0.8-5.3); ABSOLUTE MONOCYTES 0.2 thou/uL (0.0-1.2); ATYPICAL LYMPHS 1 %; PLATELET ESTIMATE ADEQUATE
[2020-01-20 06:33] LABS: ANISOCYTOSIS 1+; POIKILOCYTOSIS 1+; POLYCHROMASIA Occasional
[2020-01-20 08:12] LABS: HEMATOCRIT 34.4 % (37.0-47.0); HEMOGLOBIN 11.9 gm/dL (12.0-15.0); MCH 30.9 pg (26.0-34.0)
[2020-01-20 08:14] LABS: MCHC 34.6 g/dL (28.0-37.0); MCV 89.3 fL (80.0-100.0); MPV 8.8 fl. (7.2-11.1); RBC 3.85 mil/uL (4.20-5.00); RDW-CV 14.6 % (10.5-14.5); WBC 6.6 thou/uL (4.0-11.0)
[2020-01-20 08:36] LABS: ALBUMIN 1.4 g/dL (3.4-5.0); CREATININE 2.5 mg/dL (0.6-1.3); POTASSIUM 3.9 mmol/L (3.5-5.1); TOTAL BILIRUBIN 0.6 mg/dL (<0.1-1.0); TOTAL PROTEIN 3.2 g/dL (6.4-8.2)
[2020-01-20 09:18] LABS: CALCIUM 5.8 mg/dL (8.5-10.1)
[2020-01-20 15:25] LABS: HEMATOCRIT 28.1 % (37.0-47.0); MCH 31.1 pg (26.0-34.0)
[2020-01-20 15:26] LABS: MCHC 34.4 g/dL (28.0-37.0); MCV 90.4 fL (80.0-100.0); MPV 9.6 fl. (7.2-11.1); RBC 3.11 mil/uL (4.20-5.00); RDW-CV 14.6 % (10.5-14.5); WBC 9.2 thou/uL (4.0-11.0)
[2020-01-20 15:29] LABS: HEMOGLOBIN 9.7 gm/dL (12.0-15.0)
[2020-01-20 15:47] LABS: ALKALINE PHOSPHATASE 124 U/L (46-116); ANION GAP 22 mmol/L (7-16); BUN 37 mg/dL (7-18); CHLORIDE 110 mmol/L (98-107); CO2 17 mmol/L (21-32); GLUCOSE 203 mg/dL (70-99); POTASSIUM 4.4 mmol/L (3.5-5.1); SGPT 3428 U/L (30-65); SODIUM 149 mmol/L (136-145); TOTAL BILIRUBIN 0.5 mg/dL (<0.1-1.0); TOTAL PROTEIN 2.9 g/dL (6.4-8.2)
[2020-01-20 16:30] LABS: CALCIUM 5.6 mg/dL (8.5-10.1)
[2020-01-20 16:32] LABS: SGOT > 20000 U/L (15-37)
[2020-01-20 17:12] LABS: BE -12.4 mmol/L (-2 to +3); pH 7.392 (7.340-7.450)
[2020-01-20 17:17] LABS: PCO2 17.9 mmHg (35.0-45.0); PO2 146.2 mmHg (75.0-100.0)
[2020-01-20 21:24] LABS: HEMOGLOBIN 7.7 gm/dL (12.0-15.0); MCH 30.8 pg (26.0-34.0); MCHC 33.3 g/dL (28.0-37.0); MCV 92.5 fL (80.0-100.0); MPV 9.1 fl. (7.2-11.1); RBC 2.49 mil/uL (4.20-5.00); RDW-CV 15.2 % (10.5-14.5); WBC 10.8 thou/uL (4.0-11.0)
[2020-01-20 21:33] LABS: CREATININE 2.7 mg/dL (0.6-1.3); MAGNESIUM 1.7 mg/dL (1.8-2.4); POTASSIUM 4.8 mmol/L (3.5-5.1)
[2020-01-20 21:34] LABS: CALCIUM 5.5 mg/dL (8.5-10.1)
[2020-01-20 23:39] LABS: RDW-CV 14.9 % (10.5-14.5)
[2020-01-20 23:40] LABS: HEMATOCRIT 25.4 % (37.0-47.0); HEMOGLOBIN 8.5 gm/dL (12.0-15.0); MCH 30.9 pg (26.0-34.0); MCHC 33.5 g/dL (28.0-37.0); MCV 92.2 fL (80.0-100.0); MPV 9.9 fl. (7.2-11.1); RBC 2.76 mil/uL (4.20-5.00); WBC 10.7 thou/uL (4.0-11.0)
[2020-01-20 23:57] LABS: ALBUMIN 1.9 g/dL (3.4-5.0); ALKALINE PHOSPHATASE 159 U/L (46-116); ANION GAP 27 mmol/L (7-16); BUN 36 mg/dL (7-18); CALCIUM 6.3 mg/dL (8.5-10.1); CHLORIDE 105 mmol/L (98-107); CO2 14 mmol/L (21-32); CREATININE 3.1 mg/dL (0.6-1.3); GLUCOSE 179 mg/dL (70-99); SGPT 2232 U/L (30-65); SODIUM 146 mmol/L (136-145); TOTAL BILIRUBIN 0.4 mg/dL (<0.1-1.0); TOTAL PROTEIN 3.3 g/dL (6.4-8.2)
[2020-01-21] VITALS (197 sets, daily range): BP systolic 82–188; BP diastolic 27–71
[2020-01-21] LABS: POTASSIUM 5.8 mmol/L (3.5-5.1)
[2020-01-21 00:12] LABS: SGOT > 20000 U/L (15-37)
[2020-01-21 04:08] LABS: ABSOLUTE EOSINOPHILS 0.2 thou/uL (0.0-0.7); ABSOLUTE MONOCYTES 0.4 thou/uL (0.0-1.2); ABSOLUTE NEUTROPHILS 8.5 thou/uL (1.6-8.1); BASOPHILS 0.4 %; EOSINOPHILS 1.9 %; HEMATOCRIT 31.9 % (37.0-47.0); LYMPHOCYTES 9.9 %; MCH 31.1 pg (26.0-34.0); MCHC 34.1 g/dL (28.0-37.0); MONOCYTES 3.8 %; NUCLEATED RBCS 12 /100WBC; PLATELET COUNT* 57 thou/uL (150-400); RDW-CV 15.5 % (10.5-14.5); WBC 10.1 thou/uL (4.0-11.0)
[2020-01-21 04:19] LABS: HEMOGLOBIN 10.9 gm/dL (12.0-15.0)
[2020-01-21 04:43] LABS: ALBUMIN 2.4 g/dL (3.4-5.0); ANION GAP 25 mmol/L (7-16); BUN 33 mg/dL (7-18); CHLORIDE 102 mmol/L (98-107); CO2 16 mmol/L (21-32); GLUCOSE 182 mg/dL (70-99); PHOSPHORUS* 13.5 mg/dL (2.5-4.9); SODIUM 143 mmol/L (136-145)
[2020-01-21 04:48] LABS: CALCIUM < 5.0 mg/dL (8.5-10.1)
[2020-01-21 06:51] LABS: HEMATOCRIT 31.6 % (37.0-47.0); HEMOGLOBIN 10.9 gm/dL (12.0-15.0)
[2020-01-21 06:53] LABS: MCH 31.3 pg (26.0-34.0); MCHC 34.5 g/dL (28.0-37.0); MCV 90.9 fL (80.0-100.0); MPV 9.6 fl. (7.2-11.1); RBC 3.48 mil/uL (4.20-5.00); RDW-CV 15.5 % (10.5-14.5); WBC 10.3 thou/uL (4.0-11.0)
[2020-01-21 07:29] LABS: ALBUMIN 2.1 g/dL (3.4-5.0); ANION GAP 25 mmol/L (7-16); BUN 36 mg/dL (7-18); CHLORIDE 101 mmol/L (98-107); TOTAL BILIRUBIN 0.8 mg/dL (<0.1-1.0); TOTAL PROTEIN 3.4 g/dL (6.4-8.2)
[2020-01-21 07:34] LABS: APTT 61.3 Seconds (25.0-31.3); PROTIME 80.3 Seconds (9.20-11.50)
[2020-01-21 07:36] LABS: INR 8.6
[2020-01-21 07:53] LABS: ALKALINE PHOSPHATASE 203 U/L (46-116); CO2 16 mmol/L (21-32); CREATININE 3.3 mg/dL (0.6-1.3); GLUCOSE 190 mg/dL (70-99); SGPT 1623 U/L (30-65); SODIUM 142 mmol/L (136-145)
[2020-01-21 08:12] LABS: BE -9.3 mmol/L (-2 to +3); PCO2 33.6 mmHg (35.0-45.0)
[2020-01-21 08:15] LABS: pH 7.299 (7.340-7.450)
[2020-01-21 08:30] LABS: SGOT > 20000 U/L (15-37)
[2020-01-21 08:31] LABS: POTASSIUM 6.9 mmol/L (3.5-5.1)
[2020-01-21 08:32] LABS: CALCIUM < 5.0 mg/dL (8.5-10.1)
--- NOTE | 2020-01-21 09:40 | OP ---
[address] [address] OPERATIVE REPORT Name: MIRIAM ACOSTA Room: [address] IN .R.#: [id number] Admission: 01/18/20 Attend Phys: Evelina Vargas MD Discharge: Date of : 46 Report #: [id number] THIS REPORT FOR: //name// cc: ACOSTA - Family physician unknown FAM - Family physician unknown ~ THIS REPORT FOR: //name// CC: FAM unknown Evelina Vargas DATE OF SERVICE: 01/19/2020 This is a second surgery for the same day. PREOPERATIVE DIAGNOSIS: Left lower extremity ischemia. POSTOPERATIVE DIAGNOSIS: Left lower extremity ischemia. PROCEDURE: Left leg open catheter thrombectomy via right common femoral approach. INDICATION: The patient is a 69-year-old woman who underwent thrombectomy and fasciotomy of the right leg earlier today. In the recovery room, she was noted to have discoloration of the left foot developing and we could not get pulses. She requires thrombectomy of this leg for possible thrombosis. OPERATING SURGEON: Jovani Simpson MD ANESTHESIA: General anesthesia. ESTIMATED BLOOD LOSS: 100 mL. SPECIMENS: Thrombus. FINDINGS: The patient was found to have open common femoral artery, but there was thrombus in the profunda and also in probably the popliteal and distal SFA and tibial vessels. After thrombectomy, she has a palpable dorsalis pedis pulse in the foot. DESCRIPTION OF PROCEDURE: After general anesthesia was achieved, the patient was positioned and prepped and draped in the usual fashion. Time-out was done. Longitudinal incision was made over the left common femoral artery. Dissection was carried down to expose the common femoral artery. There was a pulse within it, was looped with a vessel loop. The profunda and SFA looked at their origins in vessel loop. Transverse arteriotomy was then made on the distal common femoral artery. A 3 Fogerty was run down the profunda and brought back, [place] [address] OPERATIVE REPORT Name: MIRIAM ACOSTA Room: [address] IN [facility].#: [id number] Admission: 01/18/20 Attend Phys: Evelina Vargas MD Discharge: Date of : 46 Report #: [id number] removing thrombus and heparinized saline was flushed down the profunda. We did flush the common femoral artery from the iliac, there was no thrombus there. We then ran a Giovanny down the SFA and got thrombus back. We were able to run all the way down to the dorsalis pedis in the foot and ran until we got no further thrombus and we flushed heparinized saline down the leg. We then closed the arteriotomy with interrupted 6-0 Prolene sutures, first opened up down the profunda and then down the SFA. There was a palpable dorsalis pedis pulse at this point in the foot. The foot had better color. We closed the groin in layers with 3-0 PDS and 4-0 Monocryl subcuticular suture. Steri-Strips and dry sterile dressings were applied. The patient was stable at the end of the procedure. Taken to recovery room. <ELECTRONICALLY SIGNED> By: Romario Ruiz MD 01/21/20 0940 1711 [id number] Simpson MD /nt
--- NOTE | 2020-01-21 09:40 | OP ---
[address] [address] OPERATIVE REPORT Name: MIRIAM ACOSTA Room: [address] IN .R.#: [id number] Admission: 01/18/20 Attend Phys: Evelina Vargas MD Discharge: Date of : 46 Report #: [id number] THIS REPORT FOR: //name// cc: ACOSTA - Family physician unknown FAM - Family physician unknown ~ THIS REPORT FOR: //name// CC: ACOSTA unknown Evelina Vargas DATE OF SERVICE: 01/19/2020 PREOPERATIVE DIAGNOSIS: Severe right lower extremity limb threatening ischemia with arterial thrombosis. POSTOPERATIVE DIAGNOSIS: Severe right lower extremity limb threatening ischemia with arterial thrombosis. PROCEDURES: 1. Open right leg catheter thrombectomy via right common femoral artery approach. 2. Four compartment fasciotomies of right lower extremity. INDICATION: The patient is a 69-year-old woman who has a history of both Crohn's disease and colon cancer. She has been undergoing chemotherapy. She has become very dehydrated. She was admitted with a hemoglobin of 18. She began complaining of not able to move her right foot. She had a duplex scan done, which shows no flow from the common femoral artery down the right leg. She also had a CT scan yesterday. 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 She requires thrombectomy and fasciotomies with an attempt at limb salvage. She has been ischemic for quite some time. OPERATING SURGEON: Jovani Simpson MD ANESTHESIA: General anesthesia. ESTIMATED BLOOD LOSS: 100 mL. SPECIMEN: Right leg thrombus. FINDINGS: The patient was found to have a fairly soft common femoral artery without significant plaque. She had thrombosis of the common femoral artery, profunda and thrombosis of the SFA down through the popliteal and tibial vessels. After thrombectomy, we removed the large burden of thrombus. She had good inflow to the common femoral artery and flow down the profunda. We were able to Doppler a posterior tibial pulse. [place] [address] OPERATIVE REPORT Name: ACOSTAMIRIAM Room: [address] IN ..#: [id number] Admission: 01/18/20 Attend Phys: Evelina Vargas MD Discharge: Date of : 46 Report #: [id number] fasciotomy, she has a little bit poor contractility of the muscle, particularly in the anterior compartment on the right side. DESCRIPTION OF PROCEDURE: After general anesthesia was achieved, the patient was positioned and prepped and draped in the usual fashion. Time-out was done. The patient was given a bolus of 5000 units of heparin. A longitudinal incision was made over the common femoral artery in the right groin. Access was carried down to expose the common femoral artery at the level of the inguinal ligament. It was looped with a Vesseloop. Profunda was looped at its origin, Vesseloop as was the SFA. A transverse arteriotomy was made in the distal common femoral artery. Clot was removed directly from the common femoral artery. We then opened up the common femoral artery, blue thrombus out from the distal external iliac artery or common femoral artery and then flushed with a feeding tube heparinized saline up the iliac artery, then went ahead and ran the Giovanny down the profunda and brought back a large burden of thrombus. We did get backbleeding. We then began with a feeding tube, flushed with heparinized saline down the profunda. I then ran the 3 Giovanny down the SFA running it down several times returning a long piece of subacute thrombus. I ran until we got no further thrombus. I then flushed heparinized saline down the leg with a feeding tube, it looked like the foot did eva with flushing this and that we are getting flow all the way to the foot. We then went ahead and used interrupted 6-0 Vascufils to close the arteriotomy on the common femoral artery, then opened up the common femoral artery down the profunda and then down the SFA. It appeared that we had pretty good flow. We were able to palpate a good pulse. I then went ahead because of her severe ischemia and the fact that her foot was somewhat frozen at the ankle in a foot drop position, went ahead and did 4-compartment fasciotomies, made longitudinal incisions medially and laterally on the leg and opened up the muscle compartments. Medially, the muscle seemed to have better bleeding than the lateral anterior compartment. I then went ahead and closed the groin with 3-0 PDS and 4-0 Monocryl subcuticular suture. We were able to Doppler posterior tibial flow at the ankle. I then went ahead and dressed the groin with Steri-Strips and 4 x 4 Op-Site dressing, dressed the fasciotomies with Xeroform gauze, 4 x 4s, Kerlix and a loose Alvin wrap. At the end of procedure, the foot had better color, but the foot was very stiff still. We did get Doppler flow in the posterior tibial artery and the heel had much better color. The forefoot still looked dusky. We will have to see how the foot recovers in the leg. She had prolonged ischemia of probably on the outside limits of limb salvage. She tolerated the procedure well and was taken to the recovery area in stable condition. We will plan on following her leg to see how it does. Hopefully, we can salvage it. If not, she likely will need a major amputation. <ELECTRONICALLY SIGNED> By: Romario Ruiz MD 01/21/20 0940 1526 2035Jovani Simpson MD /nt
[2020-01-21 14:21] LABS: ABSOLUTE EOSINOPHILS 0.1 thou/uL (0.0-0.7); ABSOLUTE LYMPHOCYTES 0.8 thou/uL (0.8-5.3); ABSOLUTE MONOCYTES 0.1 thou/uL (0.0-1.2); ABSOLUTE NEUTROPHILS 4.6 thou/uL (1.6-8.1); BASOPHILS 0.2 %; EOSINOPHILS 1.5 %; HEMATOCRIT 23.7 % (37.0-47.0); LYMPHOCYTES 14.1 %; MCH 31.8 pg (26.0-34.0); MCV 90.9 fL (80.0-100.0); MONOCYTES 1.8 %; MPV 8.2 fl. (7.2-11.1); NUCLEATED RBCS 28 /100WBC; PLATELET COUNT* 114 thou/uL (150-400); POLYS 82.4 %; RDW-CV 15.4 % (10.5-14.5); WBC 5.6 thou/uL (4.0-11.0)
[2020-01-21 14:22] LABS: HEMOGLOBIN 8.3 gm/dL (12.0-15.0)
--- NOTE | 2020-01-21 14:37 | EKG ---
[place] [address] ELECTROCARDIOGRAM REPORT Name: DAVEMIRIAM Evan Room: [address] IN M.R.#: [id number] Admission: 01/18/20 Attend Phys: Evelina Vargas, Discharge: Date of : 46 Date of Service: 01/19/20 2147 Report #: [id number] THIS REPORT FOR: //name// [facility] Test Date: 2020-01-19 Test Time: 21:47:34 Pat Name: MIRIAM ACOSTA Department: Room: [address] Gender: F End Polisher: LING : 1950 Requested By: Deloris Stanton Order Number: [id number] Harmony MD: Ankush Severino Measurements Intervals [place] Rate: 112 P: 57 KS: 103 QRS: -60 QRSD: 117 T: 48 QT: 337 QTc: 460 Interpretive Statements Sinus tachycardia RBBB and LAFB Low voltage, extremity and precordial leads Baseline wander in lead(s) V6 Compared to ECG 01/18/2020 18:40:24 Right bundle-branch block now present Low QRS voltage now present Sinus rate has increased Electronically Signed On 01-21-2020 14:36:46 CDT by Ankush Severino [email or web address] <ELECTRONICALLY SIGNED> By: Ankush Severino MD, [facility] 01/21/20 1436 46 46 Ankush Severino MD, [facility] /EPI
[2020-01-21 14:42] LABS: ALBUMIN 2.8 g/dL (3.4-5.0); CREATININE 2.5 mg/dL (0.6-1.3); TOTAL BILIRUBIN 1.1 mg/dL (<0.1-1.0); TOTAL PROTEIN 4.6 g/dL (6.4-8.2)
[2020-01-21 14:44] LABS: POTASSIUM 4.8 mmol/L (3.5-5.1)
--- NOTE | 2020-01-21 14:44 | 2DMMODE ---
[place] [address] 2 D/M-MODE ECHOCARDIOGRAM Name: MIRIAM ACOSTA Room: [address] ADM IN [facility]#: [id number] Admission: 01/18/20 Attend Phys: Evelina Vargas, Discharge: Date of : 46 Date of Service: 01/21/20 1444 Report #: [id number] THIS REPORT FOR: cc: FAM - Family physician unknown FAM - Family physician unknown Jovani Davis MD [facility] ~ APPROVED REPORT Study performed: 01/20/2020 15:32:27 EXAM: Comprehensive 2D, Doppler, and color-flow Echocardiogram Patient Location: In-Patient Room #: [facility] Status: routine BSA: 1.59 HR: 113 bpm BP: 99/74 mmHg Rhythm: NSR Other Information Study Quality: Poor Technically limited study due to body habitus, poor endocardial definition, patient on ventilator. Indications Rule out thrombus Would suggest RAS to further evaluate for thrombus due to technical difficult of this patient. Left Ventricle The left ventricle is grossly normal size. Endocardial definition is suboptimal. Cannot comment on focal wall motion. There is normal left ventricular wall thickness. Global LV systolic function appears grossly normal. LVEF is 55-60%. This study is not technically sufficient to allow evaluation of the LV diastolic function. Right Ventricle The right ventricle is grossly normal size. The right ventricular systolic function is grossly normal. Atria Not well visualized. The right atrium size is [place] [address] 2 D/M-MODE ECHOCARDIOGRAM Name: DAVEMIRIAM Room: [address] IN M.R.#: [id number] Admission: 01/18/20 Attend Phys: Evelina Vargas, Discharge: Date of : 46 Date of Service: 01/21/20 1444 Report #: [id number] Aortic valve is not well visualized. Mitral Valve Mitral valve is not well visualized. Tricuspid Valve Tricuspid valve is not well visualized. Pulmonic Valve Pulmonic valve is not well visualized. Great Vessels The aortic root is normal in size. IVC is not well visualized. Pericardium There is no pericardial effusion. <Conclusion> Technically limited two-dimensional echocardiogram. The left ventricle is grossly normal size. There is normal left ventricular wall thickness. Global LV systolic function appears grossly normal. LVEF is 55-60%. Endocardial definition is suboptimal. Cannot comment on focal wall motion. <ELECTRONICALLY SIGNED> By: Jovani Davis MD, FACC 01/21/20 1444 1444 1444 Jovani Davis MD, FACC /INF
[2020-01-21 14:47] LABS: CALCIUM 5.6 mg/dL (8.5-10.1)
[2020-01-21 16:24] LABS: BE -4.1 mmol/L (-2 to +3); PCO2 36.5 mmHg (35.0-45.0); PO2 78.4 mmHg (75.0-100.0); pH 7.371 (7.340-7.450)
--- NOTE | 2020-01-21 18:06 | PATH ---
[address] [address] PATHOLOGY RPT PROCEDURE Name: MIRIAM ACOSTA Room: [address] IN .R.#: [id number] Admission: 01/18/20 Date of : 46 Discharge: Report #: [id number] Path Case #: [id number] [facility] Accession Number: [id number] . 01 Material submitted: . PART A: gastrointestinal site - LEFT THROMBUS. Modifiers: left PART B: gastrointestinal site - THROMBUS . 01 Clinical history: . DUODENAL INFLAMMATION,GI BLEED, DEHYDRATION . 02 Diagnosis: A. Left thrombus: - Thrombus. . B. Thrombus: - Thrombus. (PALMER/db; 01/21/2020) LBQ 01/21/2020 1620 Local . 02 Electronically signed: . Jamaal Bacon MD, Pathologist NPI- [id number] . 01 Gross description: . A. The specimen is received in formalin, labeled "Miriam Acosta, left thrombus" and consists of multiple segments of blood clot measuring 7.0 x 3.0 x 0.5 cm in aggregate. Workers Compensation Claims Assistant tissue is submitted in A1. . B. The specimen is received in formalin, labeled "Acosta, Miriam, thrombus" and consists of multiple segments of blood clot measuring 8.7 x 4.5 x 0.6 cm in aggregate. Workers Compensation Claims Assistant tissue is submitted in B1. (SDY; 01/20/2020) SYU/SYU 01/20/2020 1605 Local . 02 Pathologist provided ICD-10: I82.90 . 02 CPT . 731546, 771992 Specimen Comment: A courtesy copy of this report has been sent to [phone] Specimen Comment: [phone] Specimen Comment: Report sent to / DR BAUGH Performed at: [address], [place], [place] [id number] MD Martinez Weir MD Phone: [phone] [place] [address] PATHOLOGY RPT PROCEDURE Name: DAVEMIRIAM Gordon Room: [address] IN ..#: [id number] Admission: 01/18/20 Date of : 46 Discharge: Report #: [id number] Path Case #: [id number] Performed at: [address] [place], [place] [id number] MD Jamaal Bacon MD Phone: [phone]
[2020-01-21 20:03] LABS: HEMATOCRIT 31.6 % (37.0-47.0)
[2020-01-21 20:05] LABS: CALCIUM 6.1 mg/dL (8.5-10.1); CREATININE 1.8 mg/dL (0.6-1.3); MAGNESIUM 1.9 mg/dL (1.8-2.4); POTASSIUM 4.4 mmol/L (3.5-5.1)
[2020-01-21 20:06] LABS: HEMOGLOBIN 11.1 gm/dL (12.0-15.0)
[2020-01-21 23:37] LABS: HEMOGLOBIN 11.6 gm/dL (12.0-15.0); MCH 32.5 pg (26.0-34.0); MCHC 35.3 g/dL (28.0-37.0); MCV 92.2 fL (80.0-100.0); MPV 8.4 fl. (7.2-11.1); RBC 3.58 mil/uL (4.20-5.00); RDW-CV 15.6 % (10.5-14.5); WBC 3.3 thou/uL (4.0-11.0)
[2020-01-21 23:49] LABS: ALBUMIN 2.6 g/dL (3.4-5.0); CALCIUM 6.3 mg/dL (8.5-10.1); CREATININE 1.6 mg/dL (0.6-1.3); POTASSIUM 4.6 mmol/L (3.5-5.1); TOTAL PROTEIN 4.6 g/dL (6.4-8.2)
[2020-01-22] VITALS (63 sets, daily range): BP systolic 77–162; BP diastolic 22–67
[2020-01-22 01:42] LABS: MCH 32.4 pg (26.0-34.0); MCHC 35.1 g/dL (28.0-37.0); MCV 92.3 fL (80.0-100.0); RBC 3.4 mil/uL (4.20-5.00); WBC 2.4 thou/uL (4.0-11.0)
[2020-01-22 01:44] LABS: HEMATOCRIT 31.4 % (37.0-47.0); MPV 8.6 fl. (7.2-11.1); RDW-CV 15.9 % (10.5-14.5)
[2020-01-22 03:55] LABS: HEMOGLOBIN 10.6 gm/dL (12.0-15.0); MCH 32.6 pg (26.0-34.0); RBC 3.25 mil/uL (4.20-5.00); RDW-CV 15.7 % (10.5-14.5); WBC 2.6 thou/uL (4.0-11.0)
[2020-01-22 03:57] LABS: HEMATOCRIT 30.2 % (37.0-47.0); MCHC 35.2 g/dL (28.0-37.0); MCV 92.8 fL (80.0-100.0); MPV 8.2 fl. (7.2-11.1)
[2020-01-22 04:09] LABS: ALBUMIN 2.9 g/dL (3.4-5.0); CALCIUM 6.4 mg/dL (8.5-10.1); CREATININE 1.5 mg/dL (0.6-1.3); MAGNESIUM 1.6 mg/dL (1.8-2.4); PHOSPHORUS* 4.1 mg/dL (2.5-4.9); POTASSIUM 4.4 mmol/L (3.5-5.1); TOTAL BILIRUBIN 2.2 mg/dL (<0.1-1.0); TOTAL PROTEIN 4.7 g/dL (6.4-8.2)
[2020-01-22 05:23] LABS: BE -5.4 mmol/L (-2 to +3); PCO2 32.2 mmHg (35.0-45.0); PO2 67.3 mmHg (75.0-100.0); pH 7.383 (7.340-7.450)
[2020-01-22 05:30] LABS: PROTIME 32.4 Seconds (9.20-11.50)
[2020-01-22 05:34] LABS: APTT 40.9 Seconds (25.0-31.3); INR 3.3
[2020-01-22 07:37] LABS: HEMOGLOBIN 10.8 gm/dL (12.0-15.0); RDW-CV 15.6 % (10.5-14.5); WBC 2.6 thou/uL (4.0-11.0)
[2020-01-22 07:40] LABS: HEMATOCRIT 30.4 % (37.0-47.0); MCH 32.6 pg (26.0-34.0); MCHC 35.3 g/dL (28.0-37.0); MCV 92.1 fL (80.0-100.0); MPV 8.1 fl. (7.2-11.1); RBC 3.3 mil/uL (4.20-5.00)
[2020-01-22 10:41] LABS: HEMATOCRIT 26.1 % (37.0-47.0)
[2020-01-22 10:56] LABS: RBC 2.8 mil/uL (4.20-5.00); WBC 2.6 thou/uL (4.0-11.0)
[2020-01-22 10:57] LABS: MCH 32.5 pg (26.0-34.0); MCHC 35.1 g/dL (28.0-37.0); MCV 92.6 fL (80.0-100.0); MPV 7.5 fl. (7.2-11.1); RDW-CV 15.9 % (10.5-14.5)
[2020-01-22 14:08] LABS: ALBUMIN 2.7 g/dL (3.4-5.0); CALCIUM 6.7 mg/dL (8.5-10.1); CREATININE 1.4 mg/dL (0.6-1.3); POTASSIUM 4.4 mmol/L (3.5-5.1); TOTAL BILIRUBIN 2.2 mg/dL (<0.1-1.0); TOTAL PROTEIN 4.5 g/dL (6.4-8.2)
[2020-01-22 14:57] LABS: BE -7.9 mmol/L (-2 to +3); PCO2 35.3 mmHg (35.0-45.0); PO2 61.4 mmHg (75.0-100.0); pH 7.313 (7.340-7.450)
[2020-01-22 15:46] LABS: HEMOGLOBIN 8.5 gm/dL (12.0-15.0)
[2020-01-22 15:48] LABS: HEMATOCRIT 24.6 % (37.0-47.0); MCH 32.3 pg (26.0-34.0); MCHC 34.4 g/dL (28.0-37.0); MPV 7.2 fl. (7.2-11.1); RBC 2.62 mil/uL (4.20-5.00); RDW-CV 15.9 % (10.5-14.5)
[2020-01-22 15:58] LABS: WBC 1.4 thou/uL (4.0-11.0)
[2020-01-22 16:08] LABS: ALBUMIN 2.3 g/dL (3.4-5.0); CALCIUM 6.5 mg/dL (8.5-10.1); CREATININE 1.3 mg/dL (0.6-1.3); POTASSIUM 3.9 mmol/L (3.5-5.1); TOTAL BILIRUBIN 1.8 mg/dL (<0.1-1.0); TOTAL PROTEIN 3.9 g/dL (6.4-8.2)
[2020-01-22 18:28] LABS: HEMATOCRIT 21.6 % (37.0-47.0); HEMOGLOBIN 7.5 gm/dL (12.0-15.0)
[2020-01-23 10:07] LABS: HEPATITIS B SURFACE AG Negative (Negative)
--- NOTE | 2020-01-23 10:17 | CON ---
[address] [address] CONSULTATION Name: MIRIAM ACOSTA Room: [address] IN .R.#: [id number] Admission: 01/18/20 Attend Phys: Evelina Vargas MD Discharge: 01/22/20 Date of : 46 Report #: [id number] THIS REPORT FOR: //name// cc: ACOSTA - Family physician unknown FAM - Family physician unknown ~ THIS REPORT FOR: //name// CC: ACOSTA unknown Evelina Vargas CONSULTING PHYSICIAN: Evelina Vargas MD REASON FOR CONSULTATION: Acute kidney injury. HISTORY OF PRESENT ILLNESS: A 69-year-old female with no known preexisting history of kidney disease, who was admitted with nausea, vomiting, had a recent diagnosis of transverse colon adenocarcinoma, having undergone hemicolectomy in October. She also has underlying Crohn's disease. She was found to have ischemic foot with arterial thrombosis noted bilaterally. She underwent bilateral lower extremity thrombectomy and had complication of compartment syndrome requiring fasciotomy of the right lower extremity. She also developed GI bleed, went into cardiac arrest, was resuscitated and currently is intubated on 2 pressors and also on an argatroban drip, which was changed over from heparin due to a drop in her platelet count. She has received multiple units of blood. Her creatinine has risen and her urine output has been less than 100 mL, prompting a Nephrology consult. REVIEW OF SYSTEMS: Constitutional, psych, heme, eyes, ENT, respiratory, cardiac, GI, , endocrine, all negative except as documented above and as best as can be ascertained from chart review. 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 SOCIAL HISTORY: Positive history of tobacco use. FAMILY HISTORY: Not pertinent to current clinical case in this 69-year-old female. CURRENT MEDICATIONS: Reviewed. PHYSICAL EXAMINATION: VITAL SIGNS: Blood pressure is 108/75, pulse 114, respirations 19, temperature 37.2. GENERAL: Eyes closed. EARS: Externally normal. CARDIOVASCULAR: [place] [address] CONSULTATION Name: ACOSTAMIRIAM Room: [address]#: [id number] Admission: 01/18/20 Attend Phys: Evelina Vargas MD Discharge: 01/22/20 Date of : 46 Report #: [id number] LUNGS: Diminished. ABDOMEN: Soft. MUSCULOSKELETAL: Right lower extremity is dressed. GENITOURINARY: White catheter is in place. There is hardly any urine in the White bag. NEUROLOGIC: Intubated and sedated. LABORATORY DATA: White cell count 6.6, hemoglobin 11.9, platelets 186. Sodium 151, potassium 3.9, chloride 110, bicarbonate 17, BUN 30, creatinine 2.5, glucose 213, calcium 5.8. AST and ALT are approximately 5000 and 3000. Albumin is 1.4. ASSESSMENT: 1. Acute kidney injury in the setting of shock, cardiac arrest, gastrointestinal bleed, bilateral lower extremity arterial thrombectomy with right lower extremity fasciotomy due to compartment syndrome with 80 mL of intravenous contrast received as part of a CT scan, is currently anuric with an 01/18 creatinine of 1.1, up to 2.5 on 01/19. Temporary dialysis line and continuous renal replacement therapy initiated on 01/19. 2. Metabolic acidosis with bicarbonate as low as 8 on chemistry. 3. Severe hypoalbuminemia with an albumin of 1.4. 4. Right lower extremity arterial thromboses with bilateral lower extremity thrombectomy complicated by compartment syndrome requiring right lower extremity fasciotomy. 5. Gastrointestinal bleed, was seen by GI, had a hemoglobin as low as 5.5. 6. Colon cancer with a history of Crohn's disease, has undergone chemotherapy and resection. 7. Thrombocytopenia in the setting of heparin drip being started. 8. 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 9. Elevated liver functions likely secondary to shock. PLAN: 1. We will initiate CRRT. Temporary dialysis line has been placed. We will not remove any fluid. 2. Discontinue bicarbonate drip. This should help with the hypernatremia as well. 3. Metabolic acidosis. This will correct with dialysis. 4. Hypocalcemia. IV calcium was given. We will monitor serial electrolytes and give parameters for further replacement. 5. Supratherapeutic INR. Defer to primary service. 6. Hyperphosphatemia should improve with dialysis. 7. Thrombocytopenia. HIT panel was sent. Hematology has been consulted. 8. Possible DIC. The patient has received multiple transfusions. Hematology has been consulted. 9. Check renal ultrasound with renal Doppler. 10. Currently on vasopressor support for shock. [address] [address] CONSULTATION Name: MIRIAM ACOSTA Room: [address] IN M.R.#: [id number] Admission: 01/18/20 Attend Phys: Evelina Vargas MD Discharge: 01/22/20 Date of : 46 Report #: [id number] 11. We will pack dialysis catheter with citrate. 12. Case was discussed with Dr. Dhaliwal. 13. The patient is critically ill. Thirty-five minutes critical care time spent. Thank you for requesting my opinion in the care and management of this patient. <ELECTRONICALLY SIGNED> By: Se Clifton MD 01/23/20 1017 1417 1656Abicharito Clifton MD /nt
--- NOTE | 2020-01-23 12:16 | EKG ---
[place] [address] ELECTROCARDIOGRAM REPORT Name: ACOSTAMIRIAM TORRES Evan Room: [address] IN [facility]#: [id number] Admission: 01/18/20 Attend Phys: Evelina Vargas, Discharge: 01/22/20 Date of : 46 Date of Service: 01/22/20 180 Report #: [id number] THIS REPORT FOR: //name// [facility] Test Date: 2020-01-22 Test Time: 18:03:53 Pat Name: MIRIAM ACOSTA Department: Room: [address] Gender: F Magnetic Locater: M : 1950 Requested By: Manuel Gallegos Order Number: [id number] Harmony MD: Jovani Davis Measurements Intervals [place] Rate: 146 P: 23 FL: 130 QRS: -40 QRSD: 83 T: 86 QT: 273 QTc: 426 Interpretive Statements Sinus tachycardia Left anterior fascicular block low voltage, precordial leads Consider anterior infarct Compared to ECG 01/19/2020 21:47:34 Left-axis deviation now present Myocardial infarct finding now present Right bundle-branch block no longer present Electronically Signed On 01-23-2020 12:16:11 CDT by Jovani Davis [email or web address] <ELECTRONICALLY SIGNED> By: Jovani Davis MD, [facility] 01/23/20 1216 02 180 Jovani Davis MD, [facility] /EPI
== END 2020-01-22 19:03 | DRG 252 ==
LOC: M.ERS 18:25 → M.ICU 20:35 → M.TBA-ER 20:35 → M.3W 21:39 → M.ICU 01-19 18:53
PROVIDERS: Internal Medicine; Internal Medicine Critical Care Medicine; Internal Medicine Nephrology; Nurse Practitioner Family; Pediatrics; Surgery; Surgery Vascular Surgery; ADMIT Internal Medicine; ATTEND Internal Medicine
PROC: 0BH18EZ Insertion of Endotracheal Airway into Trachea, Via Natural or Artificial Opening Endoscopic (ICD-10-PCS; 2020-01-18)
PROC: 04CK0ZZ Extirpation of Matter from Right Femoral Artery, Open Approach (ICD-10-PCS; 2020-01-19)
PROC: 03HY32Z Insertion of Monitoring Device into Upper Artery, Percutaneous Approach (ICD-10-PCS; 2020-01-19)
PROC: 0KNS0ZZ Release Right Lower Leg Muscle, Open Approach (ICD-10-PCS; 2020-01-19)
PROC: 04CL0ZZ Extirpation of Matter from Left Femoral Artery, Open Approach (ICD-10-PCS; 2020-01-19)
PROC: 5A12012 Performance of Cardiac Output, Single, Manual (ICD-10-PCS; principal; 2020-01-20)
PROC: 30233N1 Transfusion of Nonautologous Red Blood Cells into Peripheral Vein, Percutaneous Approach (ICD-10-PCS; principal; 2020-01-20)
PROC: 0BH18EZ Insertion of Endotracheal Airway into Trachea, Via Natural or Artificial Opening Endoscopic (ICD-10-PCS; principal; 2020-01-20)
PROC: 5A1945Z Respiratory Ventilation, 24-96 Consecutive Hours (ICD-10-PCS; principal; 2020-01-20)
PROC: 30233R1 Transfusion of Nonautologous Platelets into Peripheral Vein, Percutaneous Approach (ICD-10-PCS; principal; 2020-01-20)
PROC: B548ZZA Ultrasonography of Superior Vena Cava, Guidance (ICD-10-PCS; principal; 2020-01-20)
PROC: 02HV33Z Insertion of Infusion Device into Superior Vena Cava, Percutaneous Approach (ICD-10-PCS; principal; 2020-01-20)
PROC: 30233K1 Transfusion of Nonautologous Frozen Plasma into Peripheral Vein, Percutaneous Approach (ICD-10-PCS; 2020-01-21)
PROC: 0DJ08ZZ Inspection of Upper Intestinal Tract, Via Natural or Artificial Opening Endoscopic (ICD-10-PCS; 2020-01-21)
PROC: 30233M1 Transfusion of Nonautologous Plasma Cryoprecipitate into Peripheral Vein, Percutaneous Approach (ICD-10-PCS; 2020-01-21)
DX: I74.3 Embolism and thrombosis of arteries of the lower extremities (principal); K29.71 Gastritis, unspecified, with bleeding; N17.0 Acute kidney failure with tubular necrosis; J96.01 Acute respiratory failure with hypoxia; E43 Unspecified severe protein-calorie malnutrition; K72.00 Acute and subacute hepatic failure without coma; K26.4 Chronic or unspecified duodenal ulcer with hemorrhage; C18.9 Malignant neoplasm of colon, unspecified; K50.90 Crohn's disease, unspecified, without complications; D68.59 Other primary thrombophilia; D62 Acute posthemorrhagic anemia; E87.0 Hyperosmolality and hypernatremia; T79.A29A Traumatic compartment syndrome of unspecified lower extremity, initial encounter; Y99.8 Other external cause status; Z68.32 Body mass index [BMI] 32.0-32.9, adult; I46.9 Cardiac arrest, cause unspecified; R57.8 Other shock; E86.0 Dehydration; K29.80 Duodenitis without bleeding; D69.6 Thrombocytopenia, unspecified; E87.6 Hypokalemia; E86.9 Volume depletion, unspecified; I99.8 Other disorder of circulatory system; D73.5 Infarction of spleen; K29.60 Other gastritis without bleeding; K75.89 Other specified inflammatory liver diseases; M19.90 Unspecified osteoarthritis, unspecified site; K72.90 Hepatic failure, unspecified without coma; Z51.5 Encounter for palliative care; X58.XXXA Exposure to other specified factors, initial encounter; Z96.1 Presence of intraocular lens; E83.51 Hypocalcemia; K21.0 Gastro-esophageal reflux disease with esophagitis; E16.2 Hypoglycemia, unspecified; K31.9 Disease of stomach and duodenum, unspecified; Z66 Do not resuscitate; Z20.828 Contact with and (suspected) exposure to other viral communicable diseases; Z98.891 History of uterine scar from previous surgery; Z98.42 Cataract extraction status, left eye; Z98.41 Cataract extraction status, right eye; Z79.899 Other long term (current) drug therapy; Z88.8 Allergy status to other drugs, medicaments and biological substances; Z90.49 Acquired absence of other specified parts of digestive tract; Z92.21 Personal history of antineoplastic chemotherapy; Z03.818 Encounter for observation for suspected exposure to other biological agents ruled out; Y93.89 Activity, other specified; Y92.89 Other specified places as the place of occurrence of the external cause